=== PATIENT | male | born 1955 | race Two or more races ===

== ENCOUNTER 2019-06-01 13:48 | Outpatient (CLI) | payer MEDICARE ==
[2019-06-01] MEDS ORDERED: Iopamidol-370 76% 500 ML 1 ML ONE (14:14)
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
== END 2019-06-01 13:49 | disposition home or self-care (01) ==
LOC: BICCT 13:48
PROVIDERS: ATTEND Internal Medicine Gastroenterology
DX: C18.9 Malignant neoplasm of colon, unspecified (principal); K57.30 Diverticulosis of large intestine without perforation or abscess without bleeding; N40.0 Benign prostatic hyperplasia without lower urinary tract symptoms; K56.699 Other intestinal obstruction unspecified as to partial versus complete obstruction; M62.511 Muscle wasting and atrophy, not elsewhere classified, right shoulder; J98.4 Other disorders of lung; Z98.890 Other specified postprocedural states
CPT/HCPCS: 71260; 74177; Q9967

== ENCOUNTER 2019-06-22 06:59 | Outpatient (CLI) | payer MEDICARE ==
[2019-06-22 10:29] LABS: #Basophils 0.1 thou/uL (0.0-0.2); #Eosinphils 0.7 thou/uL (0.0-0.7); #Lymphocytes 2.8 thou/uL (1.20-3.40); #Monocytes 0.8 thou/uL (0.11-0.59); #Neutrophils 5.6 thou/uL (1.40-6.50); %Basophils 1.4 % (0.0-1.0); %Lymphocytes 28.2 % (21.0-51.0); %Monocytes 7.9 % (0.0-10.0); %Neutrophils 55.4 % (42.0-75.0); Hemoglobin 15.9 g/dL (14.0-18.0); Mean Corpuscular HGB CONC 33.7 g/dL (32.0-36.0); Mean Corpuscular Hemoglobin 31.9 pg (27.0-31.0); Mean Corpuscular Volume 94.4 fL (78.0-98.0); Mean Platelet Volume 8.9 fL (7.4-10.4); Platelet Count 200 thou/uL (130-400); RBC Distribution Width 12.6 % (11.5-14.5); Red Blood Cell (RBC) Count 4.98 mill/uL (4.70-6.10)
[2019-06-22 10:35] LABS: Hemoglobin A1c 6.3 % (4.0-6.0)
[2019-06-22 10:43] LABS: Anion Gap 14 mmol/L (10-20); BUN (Urea Nitrogen) 17 mg/dL (8.4-25.7); Calc. Creatinine Clearance 0 mL/min (70-130); Calcium 9.7 mg/dL (7.8-10.44); Carbon Dioxide 23 mmol/L (23-31); Chloride 104 mmol/L (98-107); Estimated GFR-MDRD Greater than 90; Glucose 110 mg/dL (80-115); Potassium 4.2 mmol/L (3.5-5.1); Sodium 137 mmol/L (136-145)
== END 2019-06-22 07:00 | disposition home or self-care (01) ==
LOC: LABBT 06:59
PROVIDERS: ATTEND Surgery
DX: Z01.812 Encounter for preprocedural laboratory examination (principal); C18.9 Malignant neoplasm of colon, unspecified
CPT/HCPCS: 80048; 83036; 85025

== ENCOUNTER 2019-06-22 10:00 | Inpatient (IN) | payer MEDICARE ==
[2019-06-29] MEDS ORDERED: Sodium Chloride 0.9% 0 ML ONE (06:05)
[2019-06-29] MEDS ORDERED: Lidocaine 1% (PF) 30 ML VIAL ONE (06:40)
[2019-06-29] MEDS ORDERED: Fentanyl 100 MCG/2 ML VIAL ONE ×3 (06:40→10:27)
[2019-06-29] MEDS ORDERED: Midazolam HCl 2 mg/2 ml Vial ONE (06:40)
[2019-06-29] MEDS ORDERED: HYDROmorphone 0.5 MG/0.5 ML SYRINGE ONE (07:13)
[2019-06-29] MEDS ORDERED: Albumin 5% 500 ML ONE (07:13)
[2019-06-29] MEDS ORDERED: Glycopyrrolate 0.2 MG/ML 5 ML SYRINGE ONE (09:47)
[2019-06-29] MEDS ORDERED: Ketorolac Tromethamine 30 MG/ML VIAL ONE (09:47)
[2019-06-29] MEDS ORDERED: Dexamethasone 20 MG/5 ML VIAL ONE (09:47)
[2019-06-29] MEDS ORDERED: PROPOFOL 200 MG/20 ML VIAL ONE (09:47)
[2019-06-29] MEDS ORDERED: Rocuronium Bromide 10 MG/ML (10ML VIAL) ONE (09:47)
[2019-06-29] MEDS ORDERED: Lidocaine 1% PF 5 ML VIAL ONE (09:47)
[2019-06-29] MEDS ORDERED: Ondansetron PF 4 MG/2 ML Vial ONE (09:47)
[2019-06-29] MEDS ORDERED: Bupivacaine HCl 0.5%/Epinephrine 1:200,000/PF 30 ml Vial ONE (09:56)
[2019-06-29] MEDS ORDERED: Promethazine HCl 25 MG/ML VIAL SLOW IVP PRN ×2 (10:10→10:28)
[2019-06-29] MEDS ORDERED: Promethazine HCl 25 MG/ML VIAL IM PRN ×3 (10:10→10:28)
[2019-06-29] MEDS ORDERED: HYDROmorphone 2 MG/ML VIAL SLOW IVP PRN (10:10)
[2019-06-29] MEDS ORDERED: Ondansetron HCl/PF 4 MG/2 ML Vial IVP PRN ×2 (10:10→10:28)
[2019-06-29] MEDS ORDERED: PACU-Morphine 4MG/ML VIAL SLOW IVP PRN (10:10)
[2019-06-29] MEDS ORDERED: Ondansetron PF 4 MG/2 ML Vial IVP PRN (10:19)
[2019-06-29] MEDS ORDERED: hydrALAZINE 20 MG/ML VIAL SLOW IVP PRN (10:19)
[2019-06-29] MEDS ORDERED: diphenhydrAMINE 50 MG/ML VIAL IVP PRN (10:28)
[2019-06-29] MEDS ORDERED: Naloxone HCl 0.4 mg/ml Vial IV PRN (10:28)
[2019-06-29] MEDS ORDERED: Zolpidem Tartrate 5 MG TAB PO PRN (10:28)
[2019-06-29] MEDS ORDERED: fentaNYL Citrate/PF 2,000 MCG in Sodium Chloride 0.9% 60 ML IV PRN (10:28)
[2019-06-29] MEDS ORDERED: diphenhydrAMINE 25 MG CAP PO PRN (10:28)
[2019-06-29] MEDS ORDERED: Ketorolac Tromethamine 30 MG/ML VIAL IVP PRN (10:28)
[2019-06-29] MEDS ORDERED: diphenhydrAMINE 50 MG/ML VIAL IM PRN (10:28)
[2019-06-29] MEDS ORDERED: Communication Order-Pharmacy FS SCH (10:30)
[2019-06-29] MEDS: Acetaminophen 500 MG TAB PO SCH ×3 (11:45→22:01)
[2019-06-29] MEDS: Sodium Chloride 0.9% 1,000 ML IV SCH (12:00)
[2019-06-29] MEDS ORDERED: Heparin 1,000 UNITS/ML VIAL ONE (12:56)
[2019-06-29] MEDS ORDERED: cefOXitin 2 GM in Sodium Chloride 0.9% 100 ML IVPB SCH (14:00)
--- NOTE | 2019-06-29 16:32 | OP ---
DATE OF PROCEDURE: 06/29/2019 PREOPERATIVE DIAGNOSIS: Splenic flexure of colon mass. POSTOPERATIVE DIAGNOSIS: Splenic flexure of colon mass. PROCEDURES PERFORMED: 1. Partial colectomy and anastomosis (transverse colon resection with splenic flexure). 2. Splenic flexure mobilization. ANESTHESIA: General. ESTIMATED BLOOD LOSS: 100 mL. COMPLICATIONS: None. FINDINGS: Significant scar tissue formation from previous surgery. TECHNIQUE: The patient was taken to the operating room and laid supine on the operating room table. After general anesthetic was obtained, a Briggs was placed. He was placed in lithotomy position. His abdomen was shaved, prepped, and draped in a sterile fashion. Left subcostal 5 mm Optiview trocar was placed in usual fashion. High-flow pneumoperitoneum was obtained. The patient had significant intra-abdominal adhesions. His omentum could not be retracted out of the pelvis. His omentum was stuck over the top of his previous right colon anastomosis. Decision was made to open. Midline incision was made. Bookwalter retractor was placed. All adhesions in the abdomen taken down. There was blue tattoo seen in the left upper quadrant. Splenic flexure was mobilized in the usual fashion, bringing the palpable mass up into the field. This was in the mid to distal transverse colon. The patient had a previous anastomosis that was in the area of the hepatic flexure. Hepatic flexure mobilization was performed then bringing the previous ileocolic anastomosis up into the field as well. Decision was made to resect the previous right colon anastomosis, the transverse colon, and the sigmoid colon. The mesenteric vessels were taken using the Impact LigaSure. There was one burn wound made to the small bowel and so this area of the small bowel was ellipsed out and closed transversely using 3-0 Vicryl in 2 layers. SWATHI 75 stapler was fired across the ileum just proximal to the previous ileocolic anastomosis. SWATHI-75 was fired across the mid descending colon. Specimen was opened on the back table to reveal the tumor, sent to Path for final diagnosis. The small intestine was able to be brought up in a [id number] fashion to the descending colon. Enterotomy and colotomy were made and a nlbt-nr-[id number] anastomosis was performed using the SWATHI-75 stapler. The common enterotomy was closed transversely using two layers of 2-0 Vicryl. The mesenteric defect was closed using Vicryl. Crotch stitch was placed using silk pop-off. Small bowel was then run all the way back to the ileocecal valve without evidence of any injury. The anastomosis did not appear ischemic. PDS was used to close the fascia from top and the bottom and tied in the middle. Subcutaneous tissues were irrigated and the skin was closed using running 3-0 Vicryl, 4-0 Monocryl, and Dermabond. The patient was sent to Recovery in stable condition. All instrument counts, needle counts, lap counts were correct. Job ID: [id number]
[2019-06-29] MEDS: cefOXitin Sodium/Dextrose,Iso 2 GM in Premix Bag 1 BAG IVPB SCH (17:01)
[2019-06-29] MEDS: Enoxaparin Sodium 40 MG/0.4 ML SYRINGE SC SCH (20:18)
[2019-06-29] MEDS: Famotidine 20 MG TAB PO SCH (20:18)
[2019-06-29] MEDS: NIFEdipine XL 60 MG TAB PO SCH (20:19)
[2019-06-29] MEDS: Famotidine/PF 20 mg/2ml Vial SLOW IVP SCH (20:19)
[2019-06-29] MEDS: Lisinopril 20 MG TAB PO SCH (20:19)
[2019-06-30] MEDS: Sodium Chloride 0.9% 1,000 ML IV SCH (00:52)
[2019-06-30] MEDS: cefOXitin Sodium/Dextrose,Iso 2 GM in Premix Bag 1 BAG IVPB SCH (00:52)
[2019-06-30] MEDS: Acetaminophen 500 MG TAB PO SCH ×4 (04:34→23:07)
[2019-06-30 05:55] LABS: #Lymphocytes 1.6 thou/uL (1.20-3.40); #Monocytes 1.3 thou/uL (0.11-0.59); #Neutrophils 13.1 thou/uL (1.40-6.50); %Basophils 0.2 % (0.0-1.0); %Eosinophils 0.1 % (0.0-10.0); %Neutrophils 81.6 % (42.0-75.0); Hemoglobin 13.6 g/dL (14.0-18.0); Mean Corpuscular HGB CONC 33.7 g/dL (32.0-36.0); Mean Corpuscular Hemoglobin 31.6 pg (27.0-31.0); Mean Corpuscular Volume 93.9 fL (78.0-98.0); Mean Platelet Volume 9.1 fL (7.4-10.4); Platelet Count 161 thou/uL (130-400); RBC Distribution Width 12.3 % (11.5-14.5)
[2019-06-30 06:13] LABS: Anion Gap 10 mmol/L (10-20); BUN (Urea Nitrogen) 9 mg/dL (8.4-25.7); Calc. Creatinine Clearance 137 mL/min (70-130); Calcium 8.5 mg/dL (7.8-10.44); Carbon Dioxide 26 mmol/L (23-31); Chloride 106 mmol/L (98-107); Estimated GFR-MDRD Greater than 90; Glucose 100 mg/dL (80-115); Sodium 138 mmol/L (136-145)
[2019-06-30] MEDS: Famotidine 20 MG TAB PO SCH ×2 (08:26→20:59)
[2019-06-30] MEDS: Lisinopril 20 MG TAB PO SCH ×2 (08:26→20:59)
[2019-06-30] MEDS: NIFEdipine XL 60 MG TAB PO SCH ×2 (08:26→20:59)
[2019-06-30] MEDS: Famotidine/PF 20 mg/2ml Vial SLOW IVP SCH ×2 (08:28→20:59)
[2019-06-30] MEDS ORDERED: Sodium Chloride 0.9% 1,000 ML IV SCH (10:11)
--- NOTE | 2019-06-30 10:18 | PRG ---
DATE OF SERVICE: 06/30/2019 SUBJECTIVE: Postop day 1, transverse colectomy. Mr. Singh is doing well. He tolerated the clear liquids without difficulty. He is complaining of pain, but it is tolerable. He has been ambulatory. OBJECTIVE: VITAL SIGNS: He is afebrile. Vital signs are stable. ABDOMEN: Soft, appropriately tender. The midline wound is healing well. There is no evidence of infection. LABORATORY DATA: White blood cell count is 16, hemoglobin 13, platelet count is 161. Sodium 138, potassium 4.0, creatinine 0.76. ASSESSMENT: Postoperative day 1 transverse colectomy for malignancy. PLAN: Advance to full liquids for dinner if he is still not complaining of bloating or nausea. Continue to encourage ambulation. Decrease IV fluid rate. Job ID: [id number]
[2019-06-30] MEDS: Enoxaparin Sodium 40 MG/0.4 ML SYRINGE SC SCH (20:58)
[2019-07-01] MEDS: Acetaminophen 500 MG TAB PO SCH ×2 (04:42→09:28)
[2019-07-01] MEDS: NIFEdipine XL 60 MG TAB PO SCH ×2 (09:28→20:57)
[2019-07-01] MEDS: Famotidine/PF 20 mg/2ml Vial SLOW IVP SCH ×2 (09:28→21:04)
[2019-07-01] MEDS: Lisinopril 20 MG TAB PO SCH ×2 (09:28→20:57)
[2019-07-01] MEDS: Famotidine 20 MG TAB PO SCH ×2 (09:28→20:57)
[2019-07-01] MEDS ORDERED: Fentanyl 100 MCG/2 ML VIAL SLOW IVP PRN (09:45)
[2019-07-01] MEDS ORDERED: HYDROcodone/Acetaminophen 7.5/325 mg Tablet PO PRN (09:45)
--- NOTE | 2019-07-01 12:01 | PRG ---
DATE OF SERVICE: 07/01/2019 SUBJECTIVE: Mr. Singh is doing well. Denies nausea. He is tolerating the full liquids without difficulty. OBJECTIVE: VITAL SIGNS: Afebrile. Vital signs are stable. ABDOMEN: Soft. He has active bowel sounds. Wounds healing well. No evidence of infection or hernia. ASSESSMENT: Postoperative day 2 transverse colectomy with ileo-descending colon anastomosis (he had previous right colectomy). PLAN: Full liquids today. Suspect he will be ready for discharge tomorrow. I have already sent his prescriptions of [place] and Zofran to [facility] in [place]. Job ID: [id number]
[2019-07-01] MEDS ORDERED: Acetaminophen 500 MG TAB PO PRN (12:50)
[2019-07-01] MEDS: Fentanyl 100 MCG/2 ML VIAL SLOW IVP PRN ×3 (14:28→19:17)
[2019-07-01] MEDS: HYDROcodone/Acetaminophen 7.5/325 mg Tablet PO PRN ×2 (14:54→20:58)
[2019-07-01] MEDS: Enoxaparin Sodium 40 MG/0.4 ML SYRINGE SC SCH (20:56)
[2019-07-02] MEDS: Ondansetron PF 4 MG/2 ML Vial IVP PRN ×3 (02:43→18:46)
[2019-07-02] MEDS: Fentanyl 100 MCG/2 ML VIAL SLOW IVP PRN ×2 (02:51→10:23)
--- NOTE | 2019-07-02 09:43 | PRG ---
DATE OF SERVICE: 07/02/2019 SUBJECTIVE: The patient reports he had a lot of vomiting last night. He feels better now. He is passing some loose stools, some gas. OBJECTIVE: VITAL SIGNS: On exam, his temperature is 98.2, pulse 107, but that is actually better than it had been yesterday, and blood pressure is 118/69. GENERAL: He is awake and alert. ABDOMEN: Little distended. The incision looks good. He has bowel sounds present. ASSESSMENT: Postoperative ileus. PLAN: Not ready to go home. He will keep him another day, ask him to ambulate frequently. Job ID: [id number]
[2019-07-02] MEDS: Famotidine 20 MG TAB PO SCH ×2 (09:51→21:48)
[2019-07-02] MEDS: Lisinopril 20 MG TAB PO SCH ×2 (09:51→21:49)
[2019-07-02] MEDS: Famotidine/PF 20 mg/2ml Vial SLOW IVP SCH ×2 (09:52→20:13)
[2019-07-02] MEDS: NIFEdipine XL 60 MG TAB PO SCH ×2 (09:52→21:49)
[2019-07-02] MEDS ORDERED: Sodium Chloride 0.9% 1,000 ML IV SCH (11:30)
[2019-07-02] MEDS: HYDROcodone/Acetaminophen 7.5/325 mg Tablet PO PRN (17:37)
[2019-07-02] MEDS: Promethazine HCl 25 MG/ML VIAL IM PRN (20:09)
[2019-07-02] MEDS: Enoxaparin Sodium 40 MG/0.4 ML SYRINGE SC SCH (20:10)
[2019-07-02] MEDS: D5 1/2 NS w/20 mEq KCL 1,000 ML IV SCH (23:14)
[2019-07-03] MEDS: Ondansetron PF 4 MG/2 ML Vial IVP PRN ×2 (02:35→08:19)
[2019-07-03] MEDS: Promethazine HCl 25 MG/ML VIAL IM PRN (05:52)
[2019-07-03] MEDS: Famotidine/PF 20 mg/2ml Vial SLOW IVP SCH ×2 (08:19→19:47)
[2019-07-03] MEDS: D5 1/2 NS w/20 mEq KCL 1,000 ML IV SCH ×3 (08:19→19:47)
[2019-07-03] MEDS: NIFEdipine XL 60 MG TAB PO SCH ×2 (08:20→19:48)
[2019-07-03] MEDS: Lisinopril 20 MG TAB PO SCH ×2 (08:20→19:48)
[2019-07-03] MEDS: Famotidine 20 MG TAB PO SCH ×2 (08:20→19:47)
--- NOTE | 2019-07-03 10:13 | PRG ---
DATE OF SERVICE: 07/03/2019 SUBJECTIVE: Mr. Singh had an extended colectomy done on Friday of the last week. From reviewing his progress note from Dr. Hernandez, yesterday his abdomen was slightly distended, but he was tolerating liquids. Yesterday, his diet was advanced and since that time, he has had multiple episodes of nausea and vomiting. He says that he is still passing some liquid stool, but no gas per rectum. He was made n.p.o. last night and intravenous fluids were re-instituted. OBJECTIVE: GENERAL: He looks pretty uncomfortable at present. VITAL SIGNS: His blood pressure is 107/60, his pulse is 110 with respirations of 16. ABDOMEN: Distended. Midline incision appears to be healing without problem. Bowel sounds are markedly diminished to absent. He does have some generalized tenderness to palpation of the abdomen. LABORATORY DATA: No lab studies were ordered for today. IMPRESSION: Persistent nausea and vomiting. Hopefully, this is an ileus, always need to be concerned about anastomotic issues. PLAN: Repeat CBC and chemistry profile will be ordered. Chest x-ray and right abdominal films will be ordered. Because of this persistent nausea and vomiting, nasogastric tube will be placed. Continue to monitor his status closely. Job ID: [id number]
--- NOTE | 2019-07-03 10:15 | RAD ---
Chest one view Abdomen 2 views HISTORY: Abdominal pain and distention. Recent surgery. FINDINGS: Cardiac silhouette and pulmonary vasculature are unremarkable. Mediastinum is midline allow ing for rightward convex curvature of the thoracic spine. Nasogastric tube descends to the abdomen. No lobar consolidation or evidence of pneumothorax. Gas and fluid distended loops of small bowel are present throughout the abdomen with scattered air-fl uid levels on the upright view. No evidence of free subdiaphragmatic gas. Gas within the left lower quadrant has the appearance of sigmoid colon. Hemostasis clips overlie midline abdomen. Internal fixa tion of the thoracolumbar spine is apparent. IMPRESSION : Abnormal bowel gas pattern. Gas within the distal colon increases likelihood of ileus over obstructio n. Nasogastric tube in good position. Atherosclerosis.
[2019-07-03 11:21] LABS: Hemoglobin 14.2 g/dL (14.0-18.0); Mean Corpuscular HGB CONC 34.3 g/dL (32.0-36.0); Mean Corpuscular Volume 93.3 fL (78.0-98.0); Mean Platelet Volume 9.5 fL (7.4-10.4); Platelet Count 214 thou/uL (130-400); RBC Distribution Width 12.4 % (11.5-14.5); Red Blood Cell (RBC) Count 4.43 mill/uL (4.70-6.10); White Blood Cell (WBC) Count 8.1 thou/uL (4.8-10.8)
[2019-07-03 11:46] LABS: Anion Gap 18 mmol/L (10-20); BUN (Urea Nitrogen) 23 mg/dL (8.4-25.7); Calc. Creatinine Clearance 45 mL/min (70-130); Calcium 9.3 mg/dL (7.8-10.44); Carbon Dioxide 23 mmol/L (23-31); Chloride 94 mmol/L (98-107); Estimated GFR-MDRD 29; Glucose 147 mg/dL (80-115); Potassium 4.4 mmol/L (3.5-5.1); Sodium 131 mmol/L (136-145)
[2019-07-03 11:47] LABS: Band 6 % (5-11); Eosinophils 2 % (0-10); Large Platelets SLIGHT; Lymphocytes 20 % (21-51); MDiff Complete? YES; Monocytes 16 % (0-10); Neutrophil 56 % (42-75); Platelet Morphology Comment Appears Adequate
[2019-07-03] MEDS: Enoxaparin Sodium 40 MG/0.4 ML SYRINGE SC SCH (19:47)
[2019-07-04] MEDS: Fentanyl 100 MCG/2 ML VIAL SLOW IVP PRN ×2 (02:30→22:35)
[2019-07-04] MEDS: Ondansetron PF 4 MG/2 ML Vial IVP PRN ×2 (05:22→11:15)
--- NOTE | 2019-07-04 08:47 | PRG ---
DATE OF SERVICE: 07/04/2019 SUBJECTIVE: Mr. Singh says that he feels much better today since the nasogastric tube was placed. He is still having a considerable amount of nasogastric tube output. He says that he passed a small amount of stool per rectum. He is urinating, although not in great volumes. His x-ray from yesterday was most consistent with an ileus. OBJECTIVE: His examination today reveals his abdomen to be much less distended, still slightly tender to palpation. Few rare bowel sounds are heard. The midline incision appears to be healing without problem. IMPRESSION: He appears to be improved as compared to yesterday. PLAN: The only major change for today is to increase his IV fluid rate as the present rate is not enough to compensate for the amount of nasogastric output. Nasogastric tube will remain in place. He should continue to be ambulatory. Job ID: [id number]
[2019-07-04] MEDS: Famotidine 20 MG TAB PO SCH ×2 (08:54→21:29)
[2019-07-04] MEDS: NIFEdipine XL 60 MG TAB PO SCH ×2 (08:55→21:29)
[2019-07-04] MEDS: Lisinopril 20 MG TAB PO SCH ×2 (08:55→21:29)
[2019-07-04] MEDS: Famotidine/PF 20 mg/2ml Vial SLOW IVP SCH ×2 (09:03→21:31)
[2019-07-04] MEDS: D5 1/2 NS w/20 mEq KCL 1,000 ML IV SCH ×2 (11:45→18:25)
[2019-07-04] MEDS: Enoxaparin Sodium 40 MG/0.4 ML SYRINGE SC SCH (21:31)
[2019-07-05] MEDS: D5 1/2 NS w/20 mEq KCL 1,000 ML IV SCH ×4 (01:02→15:03)
[2019-07-05] MEDS: Famotidine 20 MG TAB PO SCH ×2 (08:15→20:24)
[2019-07-05] MEDS: NIFEdipine XL 60 MG TAB PO SCH ×2 (08:15→20:25)
[2019-07-05] MEDS: Lisinopril 20 MG TAB PO SCH ×2 (08:15→20:25)
[2019-07-05] MEDS: Famotidine/PF 20 mg/2ml Vial SLOW IVP SCH ×2 (08:16→20:24)
--- NOTE | 2019-07-05 09:03 | PRG ---
DATE OF SERVICE: 07/05/2019 SUBJECTIVE: The patient is feeling better after NG tube decompression. He says he feels hungry. He is having multiple bowel movements. Unfortunately, he is putting a tremendous amount of bilious fluid out his NG tube. OBJECTIVE: VITAL SIGNS: His temperature is 97.8, pulse 93, blood pressure 110/68. ABDOMEN: Soft, less distended. The incision is healing well. ASSESSMENT: Postoperative ileus with malnutrition. PLAN: We will place a PICC line and start TPN; as NG output decreases, we can discontinue it. Job ID: [id number]
--- NOTE | 2019-07-05 10:57 | SPC ---
Ultrasound and Fluoroscopic guided left upper extremity PICC placement HISTORY: Postoperative ileus. Malnutrition. Patient needs TPN. FINDINGS: Informed consent obtained prior to the procedure. An appropriate access site was determined with ultrasound guidance. The area was then meticulously pr epped and draped in usual sterile fashion. Skin overlying the left basilic vein anesthetized with 1% buffered lidocaine. Utilizing direct sonogr aphic guidance, vascular access is obtained via the left basilic vein, and an 0.018in guidewire was advanced to the distal SVC. Intravascular length is calculated at 40 cm, and the PICC is cut accordin gly. Needle is removed and replaced with a peel-away sheath. The PICC was advanced over the wire. Wire and peel-away sheath were removed. The tip of the catheter overlies the distal SVC. The catheter was accessed and aspirated/flushed easily. Exposure data: 0 minutes of fluoroscopic time 31 mGy centimeter squared FINDINGS: Technically successful placement of a 40 centimeter dual-lumen 5 [place] left upper extremity PICC reena gan IMPRESSION: Successful ultrasound guided placement of a left upper extremity PICC.
[2019-07-05] MEDS: Ondansetron PF 4 MG/2 ML Vial IVP PRN (11:00)
[2019-07-05 11:25] LABS: Hemoglobin 15.3 g/dL (14.0-18.0); Mean Corpuscular HGB CONC 34.8 g/dL (32.0-36.0); Mean Corpuscular Hemoglobin 32.3 pg (27.0-31.0); Mean Corpuscular Volume 92.7 fL (78.0-98.0); Platelet Count 267 thou/uL (130-400); RBC Distribution Width 12.4 % (11.5-14.5); Red Blood Cell (RBC) Count 4.74 mill/uL (4.70-6.10); White Blood Cell (WBC) Count 9.2 thou/uL (4.8-10.8)
[2019-07-05 11:44] LABS: Anion Gap 23 mmol/L (10-20); BUN (Urea Nitrogen) 42 mg/dL (8.4-25.7); Calc. Creatinine Clearance 15 mL/min (70-130); Carbon Dioxide 19 mmol/L (23-31); Chloride 93 mmol/L (98-107); Estimated GFR-MDRD 8; Glucose 126 mg/dL (80-115); Potassium 4.5 mmol/L (3.5-5.1); Sodium 130 mmol/L (136-145)
[2019-07-05 12:13] LABS: Band 33 % (5-11); Eosinophils 6 % (0-10); Lymphocytes 19 % (21-51); MDiff Complete? YES; Monocytes 14 % (0-10); Neutrophil 27 % (42-75); RBC Morphology Normal; Reactive Lymphocytes 1 % (0-10)
[2019-07-05 13:25] VITALS: BMI 27.6
[2019-07-05] MEDS: Multivitamins, Adult 10 ML, TRACE ELEMENT CONCENTRATE 1 ML, Fat Emulsion 250 ML in D15W... IV SCH (14:22)
[2019-07-05] MEDS ORDERED: HumaLOG 300 UNITS/3 ML VIAL SC PRN (15:01)
[2019-07-05] MEDS ORDERED: Dextrose 5% in Water 1,000 ML IV PRN (15:01)
[2019-07-05] MEDS ORDERED: Dextrose 50% Abboject 50 ML SYRINGE IVP PRN (15:01)
[2019-07-05] MEDS ORDERED: Enoxaparin Sodium 30 MG/0.3 ML SYRINGE SC SCH (21:00)
[2019-07-06] MEDS: Ondansetron PF 4 MG/2 ML Vial IVP PRN ×2 (02:14→09:48)
[2019-07-06] MEDS: Fentanyl 100 MCG/2 ML VIAL SLOW IVP PRN (02:21)
[2019-07-06] MEDS: Famotidine 20 MG TAB PO SCH ×2 (07:40→20:24)
[2019-07-06] MEDS: Lisinopril 20 MG TAB PO SCH (07:40)
[2019-07-06] MEDS: NIFEdipine XL 60 MG TAB PO SCH ×2 (07:41→20:23)
[2019-07-06] MEDS: Famotidine/PF 20 mg/2ml Vial SLOW IVP SCH ×2 (08:17→20:27)
[2019-07-06] MEDS: D5 1/2 NS w/20 mEq KCL 1,000 ML IV SCH (12:10)
--- NOTE | 2019-07-06 12:58 | PRG ---
DATE OF SERVICE: 07/06/2019 SUBJECTIVE: The patient is feeling much better. He denies any pain. No nausea or vomiting. His bowels are functioning well. He continues to have a pretty high NG output, however. OBJECTIVE: VITAL SIGNS: His temperature is 97.7, pulse 77, and blood pressure 119/74. GENERAL: He is awake and alert. ABDOMEN: Soft, nondistended, and nontender. The incision is healing well. ASSESSMENT: NG may be in his duodenum. PLAN: We will clamp NG. Check gastric residual, if low discontinue NG. Job ID: [id number]
[2019-07-06] MEDS: Multivitamins, Adult 10 ML, TRACE ELEMENT CONCENTRATE 1 ML, Fat Emulsion 250 ML in D15W... IV SCH (14:35)
[2019-07-06 16:29] LABS: Anion Gap 22 mmol/L (10-20); BUN (Urea Nitrogen) 81 mg/dL (8.4-25.7); Calc. Creatinine Clearance 12 mL/min (70-130); Calcium 10.1 mg/dL (7.8-10.44); Carbon Dioxide 18 mmol/L (23-31); Chloride 96 mmol/L (98-107); Estimated GFR-MDRD 7; Glucose 94 mg/dL (80-115); Potassium 4.6 mmol/L (3.5-5.1); Sodium 131 mmol/L (136-145)
[2019-07-06] MEDS ORDERED: Sodium Chloride 0.9% 1,000 ML IV SCH (18:15)
--- NOTE | 2019-07-06 18:25 | PRG ---
DATE OF SERVICE: 07/06/2019 The patient is feeling fine. His NG is out. He is tolerating clear liquids. He is voiding, but his urine output is low. On examination, his abdomen is soft, nondistended, nontender. He had a laboratory drawn for his TPN, which I did not get a report on and did not see this morning that showed his creatinine was 6, it was repeated and is 8, so he is in renal insufficiency. The plan is to consult Renal Medicine. We will go ahead and give a bolus of normal saline. Stop his TPN. His potassium level is 4.6. We will continue IV fluids, try and rehydrate him, and follow his electrolytes carefully. Job ID: [id number]
[2019-07-06] MEDS: Sodium Chloride 0.9% 1,000 ML IV SCH (19:10)
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
[2019-07-06] MEDS: Heparin 5,000 UNITS/ML VIAL SC SCH (20:29)
[2019-07-07] MEDS: Sodium Chloride 0.9% 1,000 ML IV SCH ×3 (01:36→14:01)
[2019-07-07 05:47] LABS: Anion Gap 17 mmol/L (10-20); BUN (Urea Nitrogen) 77 mg/dL (8.4-25.7); Calc. Creatinine Clearance 16 mL/min (70-130); Carbon Dioxide 16 mmol/L (23-31); Chloride 98 mmol/L (98-107); Estimated GFR-MDRD 9; Glucose 97 mg/dL (80-115); Potassium 4.3 mmol/L (3.5-5.1); Sodium 127 mmol/L (136-145)
[2019-07-07] MEDS: NIFEdipine XL 60 MG TAB PO SCH (08:26)
[2019-07-07] MEDS: Famotidine 20 MG TAB PO SCH (08:26)
[2019-07-07] MEDS: Heparin 5,000 UNITS/ML VIAL SC SCH ×2 (08:26→21:57)
[2019-07-07] MEDS: Famotidine/PF 20 mg/2ml Vial SLOW IVP SCH (08:28)
--- NOTE | 2019-07-07 08:36 | PDOC.GSPN ---
Surgery Progress Note: Subj - Subjective Narrative: No nausea, having loose stools. Multiple voids. Surgery Progress Note: Obj - Vital signs Vital signs: Vital Signs - Most Recent Temp Pulse Resp BP Pulse Ox 98 F 74 16 139/82 99 07/07/19 07:42 07/07/19 08:26 07/07/19 07:42 07/07/19 08:26 07/07/19 07:42 - Physical Exam General: no distress Cardiovascular: regular rate and rhythm Respiratory: clear to auscultation Abdomen: soft, non tender, nondistended Wound: healing well Surgery Progress Note: Results - Labs Result Diagrams: 07/05/19 11:11 07/07/19 04:58 Lab results: Laboratory Results - last 24 hr 07/06/19 07/07/19 07/07/19 23:26 04:58 05:34 Sodium 127 L Potassium 4.3 Chloride 98 Carbon Dioxide 16 L Anion Gap 17 BUN 77 H Creatinine 6.15 H Estimated GFR (MDRD) 9 Glucose 97 POC Glucose 83 95 Calcium 9.0 Surgery Progress Note: A/P - Problem (1) Colon cancer metastasized to intra-abdominal lymph node Current Visit: Yes Code(s): C18.9 - MALIGNANT NEOPLASM OF COLON, UNSPECIFIED; C77.2 - SECONDARY AND UNSP MALIGNANT NEOPLASM OF INTRA-ABD NODES Status: Acute - Plan Plan: T2, N1, Mx -advance to GI soft -appreciate Dr. Anglin consultation -discussed path results. Oncology visit as outpatient
--- NOTE | 2019-07-07 09:58 | ULT ---
Bilateral renal ultrasound CLINICAL INDICATION: Acute renal insufficiency. COMPARISON: CT abdomen on 06/01/2019 FINDINGS: Right kidney: There is no evidence of a renal mass, renal calculus, or hydronephrosis seen. There is an echogenic area seen within the cortex of the right kidney; however, this does not demonstrate posterior shadowing to suggest a calculus, and this is likely related to prominent vessel. No calcifi cation was seen on recent CT exam. The right kidney measures 10.4 cm x 5.8 cm. Left kidney: There is no evidence of a renal mass, renal calculus, or hydronephrosis. There is an ech ogenic area seen within the cortex of the left kidney; however, this does not demonstrate posterior shadowing to suggest a calculus, and this is likely related to prominent vessel. No calcification was seen on recent CT exam. The left kidney measures 10.4 cm x 5.6 cm. Urinary bladder: Mostly decompressed but otherwise grossly within normal limits. The urinary bladder volume is 54.6 mL IMPRESSION: No evidence of hydronephrosis.
--- NOTE | 2019-07-07 10:31 | PRG ---
DATE OF SERVICE: 07/07/2019 SUBJECTIVE: A 63-year-old gentleman is being seen for acute kidney injury. The patient denies any nausea, vomiting, or chest pain. OBJECTIVE: GENERAL: The patient is awake and alert. VITAL SIGNS: Afebrile, pulse 74, breathing 16, blood pressure 139/82. HEENT: Head normocephalic and atraumatic. Eyes intact, no ulcers. Nose intact, no ulcers. Ears intact, no ulcers. NECK: Supple. No JVD. CHEST: Symmetrical and clear. CARDIOVASCULAR: Shows S1 and S2, no rub, no murmur. GASTROINTESTINAL: Abdomen is soft, bowel sounds positive. EXTREMITIES: Show no edema or ulcers. SKIN: Shows no rash or petechiae. MUSCULOSKELETAL: Shows no joint swelling or stiffness. GENITOURINARY: Shows no Briggs or CVA tenderness. NEUROLOGIC: Motor intact. Cranial nerves intact. LABORATORY DATA: Reviewed. ASSESSMENT: 1. Acute kidney injury, improved. 2. Hypertension, stable. 3. Anemia, stable. 4. Medication based on GFR appropriate. Job ID: [id number]
[2019-07-07 17:12] LABS: Creatinine, Urine 166.03 mg/dL (63-166)
[2019-07-08] MEDS: Sodium Chloride 0.9% 1,000 ML IV SCH ×2 (00:19→03:09)
[2019-07-08] MEDS: Ondansetron PF 4 MG/2 ML Vial IVP PRN (00:36)
[2019-07-08] MEDS ORDERED: Sodium Chloride 0.9% 1,000 ML IV SCH (08:22)
[2019-07-08] MEDS ORDERED: traMADol HCl 50 MG TAB PO PRN ×2 (08:22)
[2019-07-08] MEDS ORDERED: Famotidine/PF 20 mg/2ml Vial SLOW IVP SCH (09:00)
[2019-07-08] MEDS ORDERED: Famotidine 20 MG TAB PO SCH (09:00)
[2019-07-08] MEDS: Heparin 5,000 UNITS/ML VIAL SC SCH (09:11)
--- NOTE | 2019-07-08 09:16 | PRG ---
DATE OF SERVICE: 07/08/2019 SUBJECTIVE: Mr. Singh did vomit overnight after drinking 2 Ensures. He feels fine this morning. He is passing gas. He is still having liquid stools. He has no abdominal pain. OBJECTIVE: VITAL SIGNS: He is afebrile and his vital signs are stable. GENERAL: Multiple voids. LABORATORY DATA: Lab still pending this morning. ASSESSMENT: 1. Postop ileus, resolving after transverse colectomy. 2. Acute tubular necrosis, improved yesterday. Still urinating regularly. PLAN: Recheck creatinine level today. Potentially discharge later today as long as his nausea does not return. We will switch him from hydrocodone to tramadol. Job ID: [id number]
[2019-07-08 10:05] LABS: Anion Gap 12 mmol/L (10-20); BUN (Urea Nitrogen) 59 mg/dL (8.4-25.7); Calc. Creatinine Clearance 39 mL/min (70-130); Calcium 8.8 mg/dL (7.8-10.44); Carbon Dioxide 20 mmol/L (23-31); Chloride 101 mmol/L (98-107); Estimated GFR-MDRD 26; Glucose 138 mg/dL (80-115); Potassium 4.1 mmol/L (3.5-5.1); Sodium 129 mmol/L (136-145)
[2019-07-08 11:48] VITALS: BP 139/72; TEMP 98.6
--- NOTE | 2019-07-08 11:53 | PRG ---
DATE OF SERVICE: 07/08/2019 SUBJECTIVE: A 63-year-old gentleman being seen for acute kidney injury. Patient denied nausea, vomiting, or chest pain. OBJECTIVE: GENERAL: On examination, patient is awake and alert. VITAL SIGNS: Pulse 74, breathing 16, blood pressure 134/67. HEENT: Head normocephalic and atraumatic. Eyes intact, no ulcers. Nose intact, no ulcers. Ears intact, no ulcers. Neck: Supple. No JVD. Chest: Symmetrical and clear. Cardiovascular: Shows S1 and S2, no rub, no murmur. Gastrointestinal: Abdomen is soft, bowel sounds positive. Extremities: Show no edema or ulcers. Skin: Shows no rash or petechiae. Musculoskeletal: Shows no joint swelling or stiffness. Genitourinary: Shows no Briggs or CVA tenderness. Neurologic: Motor intact. Cranial nerves intact. LABORATORY DATA: Hemoglobin 15.3, creatinine 2.5. ASSESSMENT AND PLAN: Acute kidney injury, improved; hypertension, stable; anemia, stable. No indication for dialysis. Please avoid DEVIKA inhibitor at this time. Job ID: [id number]
--- NOTE | 2019-07-12 09:03 | PQF ---
MOY HERRERA BRYAN DAVID MD [id number] [facility] B- [id number] CLINICAL DOCUMENTATION CLARIFICATION FORM: POST DISCHARGE Addendum to original discharge summary date: ____ Late entry note date: __ DATE: 07/12/2019 ATTN: Yo Whiting Please exercise your independent, professional judgment in responding to the clarification form. Clinical indicators are provided on the bottom of this form for your review Please check appropriate box(s) to clarify if the following diagnosis has been ruled in or ruled out: Acute tubular Necrosis [ ] Ruled in diagnosis [ ] Continue to treat [ ] Resolved [ ] Ruled out diagnosis [ ] Cannot rule out diagnosis [ ] Other diagnosis [ ] Unable to determine For continuity of documentation, please document condition throughout progress notes and discharge summary. Thank You. CLINICAL INDICATORS - SIGNS / SYMPTOMS / LABS Laboratory Creatinine 2.31; 6.77; 8.17; 6.15, BUN 23; 42; 81; 71 Nephrology consult p1 07/05 Dr Anglin normal creatinine at baseline, His creatinine increased from 0.7 to 2.3 on July 02 and it is 8.17 today Necrology consult p1 07/05 Dr Anglin having a diarrhea, about 7-8 bowel movements a day Nephrology consult p2 07/05 Dr Anglin Acute kidney injury with chronic disease, most likely due to decreased effective arterial blood volume RISK FACTORS Nephrology consult p1 07/05 HTN Nephrology consult p2 07/05 Anemia Nephrology consult p2 07/05 CKD Nephrology consult p2 07/05 Metabolic Acidosis TREATMENTS MAR 07/01 IVF NS 1L Nephrology consult 07/05 Nani Stanton Nephrology consult p2 07/05 -Monitor I & O (This form is maintained as a part of the permanent medical record) 2014 [employer]. All Rights Reserved [email or web address]
== END 2019-07-08 13:29 | disposition home or self-care (01) | DRG 330 ==
LOC: SURG A 06-29 05:45 → EDSTATUS 06-29 10:00 → SURG B 06-29 11:12
PROVIDERS: ADMIT Surgery; ATTEND Surgery
PROC: 0DTL0ZZ Resection of Transverse Colon, Open Approach (ICD-10-PCS; principal; 2019-06-29)
PROC: 02HV33Z Insertion of Infusion Device into Superior Vena Cava, Percutaneous Approach (ICD-10-PCS; 2019-07-05)
PROC: B548ZZA Ultrasonography of Superior Vena Cava, Guidance (ICD-10-PCS; 2019-07-05)
DX: C18.4 Malignant neoplasm of transverse colon (principal); K56.7 Ileus, unspecified; N17.9 Acute kidney failure, unspecified; E87.2 Acidosis; C77.2 Secondary and unspecified malignant neoplasm of intra-abdominal lymph nodes; E46 Unspecified protein-calorie malnutrition; I25.10 Atherosclerotic heart disease of native coronary artery without angina pectoris; F17.200 Nicotine dependence, unspecified, uncomplicated; D63.1 Anemia in chronic kidney disease; N18.9 Chronic kidney disease, unspecified; I12.9 Hypertensive chronic kidney disease with stage 1 through stage 4 chronic kidney disease, or unspecified chronic kidney disease; Z79.899 Other long term (current) drug therapy; Z90.49 Acquired absence of other specified parts of digestive tract; Z68.27 Body mass index [BMI] 27.0-27.9, adult; Z79.82 Long term (current) use of aspirin
CPT/HCPCS: 36415; 36416; 36569; 74022; 76770; 80048; 82570; 84156; 85025; 87324; 87449; 88309; 94640; C1751; J0670; J0694; J1100; J1170; J1644; J1650; J1885; J2001; J2250; J2405; J2550; J2704; J3010; J3480; J3490; J7050; J7620; P9045; S0028

== ENCOUNTER 2019-07-13 14:40 | Observation (INO) | payer MEDICARE ==
[2019-07-13 15:42] LABS: Hemoglobin 17.3 g/dL (14.0-18.0); Mean Corpuscular HGB CONC 33.4 g/dL (32.0-36.0); Mean Corpuscular Volume 92.8 fL (78.0-98.0); Mean Platelet Volume 8.4 fL (7.4-10.4); Platelet Count 513 thou/uL (130-400); RBC Distribution Width 12.6 % (11.5-14.5); Red Blood Cell (RBC) Count 5.57 mill/uL (4.70-6.10); White Blood Cell (WBC) Count 21.1 thou/uL (4.8-10.8)
[2019-07-13 16:00] LABS: Band 15 % (5-11); Eosinophils 3 % (0-10); Lymphocytes 2 % (21-51); MDiff Complete? YES; Monocytes 9 % (0-10); Neutrophil 68 % (42-75); Platelet Morphology Comment Appears Increased; Polychromasia SLIGHT = 2-3 cells (100X) (0-2/hpf); Reactive Lymphocytes 3 % (0-10)
[2019-07-13 16:04] LABS: ALT (SGPT) 29 U/L (8-55); AST (SGOT) 18 U/L (5-34); Albumin 4.5 g/dL (3.4-4.8); Alkaline Phosphatase 94 U/L (40-110); Anion Gap 22 mmol/L (10-20); BUN (Urea Nitrogen) 94 mg/dL (8.4-25.7); Bilirubin, Total 1.1 mg/dL (0.2-1.2); CK (CPK) 333 U/L (30-200); Calc. Creatinine Clearance 0 mL/min (70-130); Calcium 10.2 mg/dL (7.8-10.44); Carbon Dioxide 13 mmol/L (23-31); Chloride 95 mmol/L (98-107); Estimated GFR-MDRD 25; Globulin 4.5 g/dL (2.4-3.5); Glucose 113 mg/dL (80-115); Magnesium 2.3 mg/dL (1.6-2.6); Sodium 125 mmol/L (136-145)
--- NOTE | 2019-07-13 16:29 | RAD ---
ACUTE ABDOMINAL SERIES: 07/13/19 PROVIDED CLINICAL HISTORY: Nausea and vomiting. FINDINGS: Comparison 07/03/19. The cardiac and mediastinal silhouette is within normal limits. Lungs appear clear. No pleural fluid or pneumothorax apparent. Supine and upright abdominal radiographs demonstrate a nonspecific bowel gas pattern. No evidence for pneumoperitoneum. No radiographically apparent urinary tract calculi. Spinal instrumentation changes are redemonstrated. IMPRESSION: 1. No evidence for an acute cardiopulmonary process. 2. Nonspecific bowel gas pattern. POS: EDGARDO
[2019-07-13] MEDS ORDERED: hydrALAZINE 20 MG/ML VIAL SLOW IVP PRN (17:40)
[2019-07-13] MEDS ORDERED: Acetaminophen 325 MG TAB PO PRN (17:40)
[2019-07-13] MEDS ORDERED: traMADol HCl 50 MG TAB PO PRN (17:40)
[2019-07-13] MEDS ORDERED: HYDROcodone/Acetaminophen 10/325 mg Tablet PO PRN (17:40)
[2019-07-13] MEDS ORDERED: Morphine 2 MG/ML SYRINGE SLOW IVP PRN (17:40)
[2019-07-13] MEDS ORDERED: Promethazine HCl 25 MG/ML VIAL IM PRN (17:40)
[2019-07-13] MEDS ORDERED: Ondansetron PF 4 MG/2 ML Vial IVP PRN (17:40)
[2019-07-13] MEDS ORDERED: Dextrose 50% Abboject 50 ML SYRINGE SLOW IVP PRN (17:40)
[2019-07-13] MEDS ORDERED: Dextrose 5% in Water 1,000 ML IV PRN (17:40)
[2019-07-13] MEDS ORDERED: Albuterol Sulfate 2.5 mg/3 ml Neb NEB PRN (18:00)
[2019-07-13] MEDS: Sodium Chloride 0.9% 1,000 ML IV SCH (18:10)
[2019-07-13 19:47] VITALS: BMI 25.4
[2019-07-13] MEDS: Famotidine 20 MG TAB PO SCH (19:53)
[2019-07-13] MEDS: NIFEdipine XL 60 MG TAB PO SCH (19:53)
[2019-07-13] MEDS: Enoxaparin Sodium 40 MG/0.4 ML SYRINGE SC SCH (20:03)
[2019-07-13] MEDS: Famotidine/PF 20 mg/2ml Vial SLOW IVP SCH (20:03)
--- NOTE | 2019-07-13 23:38 | HP ---
CHIEF COMPLAINT: Nausea, diarrhea, fatigue. HISTORY OF PRESENT ILLNESS: This is a 63-year-old male, who is status post transverse colectomy for T2 N1 MX distal transverse colon cancer, recently underwent open colectomy by me. The postop course was complicated by ATN of kidneys. This was resolving at the time of discharge and he was doing well. He saw me in the office today complaining of very significant fatigue, not feeling well, sent over to the emergency room for fluid resuscitation and found to have persistent elevated creatinine, although much improved from his peak of 8, but also elevated white blood cell count and low sodium. He is being admitted for fluid resuscitation. PAST MEDICAL HISTORY: Includes hypertension, chronic pain, history of right colon polyp, colon cancer, coronary artery disease, seen by Dr. Montes. ALLERGIES: PENICILLIN. PAST SURGICAL HISTORY: Above. MEDICATIONS: See list. REVIEW OF SYSTEMS: Otherwise negative. PHYSICAL EXAMINATION: HEENT: Sclerae are anicteric. Oropharynx clear. NECK: No lymphadenopathy. CHEST: Clear. HEART: Regular rate. ABDOMEN: Soft, nontender, nondistended with active bowel sounds. His midline wound is healing well. LABORATORY DATA: White blood cell count is 21, hemoglobin is 17, platelet count is 513. Sodium 125, potassium 5, chloride 95, carbon dioxide 13, creatinine 2.62, BUN 94, creatine kinase is 333, albumin normal. Acute abdominal series shows no ileus or evidence of obstructive pattern. ASSESSMENT: 1. Nausea, vomiting, dehydration, status post colectomy complicated by acute tubular necrosis. 2. Coronary artery disease. 3. Hypertension. PLAN: Admit to obs for ongoing fluid resuscitation. I suspect his leukocytosis is secondary to dehydration as well. If he has fevers, tachycardia or persistently elevated white blood cell count tomorrow, we will start antibiotics and perform CT scan although his abdomen is soft and benign. We will have the medical hospitalist see him as well. Job ID: [id number]
[2019-07-14] MEDS: Sodium Chloride 0.9% 1,000 ML IV SCH (01:03)
[2019-07-14] MEDS: Morphine 4 MG/ML VIAL SLOW IVP PRN ×2 (05:16→21:15)
[2019-07-14 05:52] LABS: #Basophils 0.1 thou/uL (0.0-0.2); #Eosinphils 0.2 thou/uL (0.0-0.7); #Lymphocytes 2.4 thou/uL (1.20-3.40); #Monocytes 1.4 thou/uL (0.11-0.59); #Neutrophils 9.9 thou/uL (1.40-6.50); %Basophils 0.5 % (0.0-1.0); %Eosinophils 1.7 % (0.0-10.0); %Lymphocytes 17.1 % (21.0-51.0); %Monocytes 10.3 % (0.0-10.0); %Neutrophils 70.5 % (42.0-75.0); Hemoglobin 13.5 g/dL (14.0-18.0); Mean Corpuscular HGB CONC 34.1 g/dL (32.0-36.0); Mean Corpuscular Hemoglobin 31.3 pg (27.0-31.0); Mean Corpuscular Volume 91.9 fL (78.0-98.0); Mean Platelet Volume 8.1 fL (7.4-10.4); Platelet Count 450 thou/uL (130-400); RBC Distribution Width 12.2 % (11.5-14.5); Red Blood Cell (RBC) Count 4.32 mill/uL (4.70-6.10); White Blood Cell (WBC) Count 14.1 thou/uL (4.8-10.8)
[2019-07-14 06:13] LABS: Anion Gap 13 mmol/L (10-20); BUN (Urea Nitrogen) 69 mg/dL (8.4-25.7); Calc. Creatinine Clearance 61 mL/min (70-130); Calcium 8.7 mg/dL (7.8-10.44); Carbon Dioxide 16 mmol/L (23-31); Chloride 106 mmol/L (98-107); Estimated GFR-MDRD 48; Glucose 86 mg/dL (80-115); Potassium 4.1 mmol/L (3.5-5.1); Sodium 131 mmol/L (136-145)
[2019-07-14] MEDS ORDERED: Sodium Chloride 0.9% 1,000 ML IV SCH (07:29)
--- NOTE | 2019-07-14 07:31 | PDOC.GSPN ---
Surgery Progress Note: Subj - Subjective Narrative: Feels better, nausea improved. Denies dyspnea Surgery Progress Note: Obj - Vital signs Vital signs: Vital Signs - Most Recent Temp Pulse Resp BP Pulse Ox 97.6 F 70 14 118/76 99 07/14/19 07:28 07/14/19 07:28 07/14/19 07:28 07/14/19 07:28 07/14/19 07:28 - Physical Exam General: no distress Cardiovascular: regular rate and rhythm Respiratory: clear to auscultation Abdomen: soft, non tender, nondistended Surgery Progress Note: Results - Labs Result Diagrams: 07/14/19 05:35 07/14/19 05:35 Lab results: Laboratory Results - last 24 hr 07/14/19 07/14/19 05:35 05:35 WBC 14.1 H RBC 4.32 L Hgb 13.5 L Hct 39.7 L MCV 91.9 MCH 31.3 H MCHC 34.1 RDW 12.2 Plt Count 450 H MPV 8.1 Neutrophils % 70.5 Lymphocytes % 17.1 L Monocytes % 10.3 H Eosinophils % 1.7 Basophils % 0.5 Neutrophils # 9.9 H Lymphocytes # 2.4 Monocytes # 1.4 H Eosinophils # 0.2 Basophils # 0.1 Sodium 131 L Potassium 4.1 Chloride 106 Carbon Dioxide 16 L Anion Gap 13 BUN 69 H Creatinine 1.49 H Estimated GFR (MDRD) 48 Glucose 86 Calcium 8.7 Surgery Progress Note: A/P - Problem (1) Colon cancer metastasized to intra-abdominal lymph node Current Visit: No Code(s): C18.9 - MALIGNANT NEOPLASM OF COLON, UNSPECIFIED; C77.2 - SECONDARY AND UNSP MALIGNANT NEOPLASM OF INTRA-ABD NODES Status: Acute - Plan Plan: Readmission for nausea, vomitting, dehydration -Try regular diet -Na improved -creatinine improved -home tomorrow if doing well
[2019-07-14] MEDS: NIFEdipine XL 60 MG TAB PO SCH ×2 (07:58→21:20)
[2019-07-14] MEDS: Famotidine/PF 20 mg/2ml Vial SLOW IVP SCH ×2 (07:58→21:39)
[2019-07-14] MEDS: Famotidine 20 MG TAB PO SCH ×2 (07:58→21:11)
[2019-07-14] MEDS ORDERED: HumaLOG 300 UNITS/3 ML VIAL SC PRN (15:10)
[2019-07-14] MEDS: D5W-AA 4.25% with LYTES 1,000 ML BAG IV SCH (16:33)
[2019-07-14] MEDS: Enoxaparin Sodium 40 MG/0.4 ML SYRINGE SC SCH (21:11)
[2019-07-15] MEDS: D5W-AA 4.25% with LYTES 1,000 ML BAG IV SCH ×2 (02:54→13:33)
[2019-07-15 06:34] LABS: Anion Gap 12 mmol/L (10-20); BUN (Urea Nitrogen) 37 mg/dL (8.4-25.7); Calc. Creatinine Clearance 96 mL/min (70-130); Calcium 8.5 mg/dL (7.8-10.44); Carbon Dioxide 19 mmol/L (23-31); Chloride 104 mmol/L (98-107); Estimated GFR-MDRD 80; Glucose 110 mg/dL (80-115); Potassium 4.2 mmol/L (3.5-5.1); Sodium 131 mmol/L (136-145)
[2019-07-15] MEDS: Famotidine/PF 20 mg/2ml Vial SLOW IVP SCH ×2 (10:16→19:32)
[2019-07-15] MEDS: Famotidine 20 MG TAB PO SCH ×2 (10:16→19:46)
[2019-07-15] MEDS: NIFEdipine XL 60 MG TAB PO SCH ×2 (10:17→19:49)
--- NOTE | 2019-07-15 12:35 | PDOC.GSPN ---
Surgery Progress Note: Subj - Subjective Narrative: Doing well. tolerated regular food yesterday Surgery Progress Note: Obj - Vital signs Vital signs: Vital Signs - Most Recent Temp Pulse Resp BP Pulse Ox 98.3 F 71 20 139/76 99 07/15/19 11:58 07/15/19 11:58 07/15/19 11:58 07/15/19 11:58 07/15/19 11:58 - Physical Exam General: no distress Cardiovascular: regular rate and rhythm Respiratory: clear to auscultation Abdomen: soft, non tender, nondistended Surgery Progress Note: Results - Labs Result Diagrams: 07/14/19 05:35 07/15/19 05:37 Lab results: Laboratory Results - last 24 hr 07/15/19 05:37 Sodium 131 L Potassium 4.2 Chloride 104 Carbon Dioxide 19 L Anion Gap 12 BUN 37 H Creatinine 0.95 Estimated GFR (MDRD) 80 Glucose 110 Calcium 8.5 Surgery Progress Note: A/P - Problem (1) Colon cancer metastasized to intra-abdominal lymph node Current Visit: No Code(s): C18.9 - MALIGNANT NEOPLASM OF COLON, UNSPECIFIED; C77.2 - SECONDARY AND UNSP MALIGNANT NEOPLASM OF INTRA-ABD NODES Status: Acute - Plan Plan: Readmission for nausea, vomitting, dehydration -Try regular diet -Na improved -creatinine improved -home tomorrow if doing well
[2019-07-15] MEDS: Enoxaparin Sodium 40 MG/0.4 ML SYRINGE SC SCH (19:46)
[2019-07-16] MEDS: D5W-AA 4.25% with LYTES 1,000 ML BAG IV SCH (00:12)
[2019-07-16 06:30] LABS: Anion Gap 14 mmol/L (10-20); BUN (Urea Nitrogen) 25 mg/dL (8.4-25.7); Calc. Creatinine Clearance 1069 mL/min (70-130); Calcium 9.3 mg/dL (7.8-10.44); Carbon Dioxide 22 mmol/L (23-31); Chloride 102 mmol/L (98-107); Estimated GFR-MDRD Greater than 90; Glucose 119 mg/dL (80-115); Potassium 4.5 mmol/L (3.5-5.1); Sodium 133 mmol/L (136-145)
[2019-07-16] MEDS: NIFEdipine XL 60 MG TAB PO SCH (08:23)
[2019-07-16] MEDS: Famotidine/PF 20 mg/2ml Vial SLOW IVP SCH (08:23)
[2019-07-16] MEDS: Famotidine 20 MG TAB PO SCH (08:23)
[2019-07-16 11:10] VITALS: BP 124/71; TEMP 98.2
--- NOTE | 2019-07-16 13:25 | DIS ---
DATE OF ADMISSION: 07/13/2019 DATE OF DISCHARGE: 07/16/2019 ADMITTING DIAGNOSES: 1. Nausea, vomiting, diarrhea, status post recent colectomy. 2. Hyponatremia. 3. Acute renal insufficiency. 4. Severe dehydration. DISCHARGE DIAGNOSES: 1. Nausea, vomiting, diarrhea, status post recent colectomy. 2. Hyponatremia. 3. Acute renal insufficiency. 4. Severe dehydration. PROCEDURES: None. CONDITION ON DISCHARGE: Improved. STAFF: Yo Whiting MD HOSPITAL COURSE: The patient was admitted. He had been discharged after his colectomy. His colectomy was complicated by ATN causing creatinine up to 8, and it had dropped into the 2.6 range prior to discharge. He was severely dehydrated at home when he came to see me for his followup appointment. He was dizzy, anorexic, and obviously dehydrated. He was admitted for fluid resuscitation. He was found to have significantly low sodium, and his creatinine was up a little bit from discharge. Over the course of his hospitalization, he felt much better with IV fluid resuscitation. He was started on TPN. His sodium approached normal on the day of discharge. His creatinine went down to normal. He felt better. He is able to tolerate regular food. No nausea or vomiting. He is still having loose stools. C. diff was negative, and the diarrhea is improved slightly. He will be discharged home. He will follow up with me in 2 weeks. Job ID: [id number]
== END 2019-07-16 12:06 | disposition home or self-care (01) ==
LOC: ERS 14:40 → SURG A 16:45
PROVIDERS: ADMIT Surgery; ATTEND Surgery
DX: E86.0 Dehydration (principal); R19.7 Diarrhea, unspecified; E87.1 Hypo-osmolality and hyponatremia; N28.9 Disorder of kidney and ureter, unspecified; I25.10 Atherosclerotic heart disease of native coronary artery without angina pectoris; C18.4 Malignant neoplasm of transverse colon; C77.2 Secondary and unspecified malignant neoplasm of intra-abdominal lymph nodes; G89.29 Other chronic pain; I10 Essential (primary) hypertension; Z86.010 Personal history of colon polyps; Z87.891 Personal history of nicotine dependence; Z79.82 Long term (current) use of aspirin; Z79.899 Other long term (current) drug therapy; Z88.0 Allergy status to penicillin; Z90.49 Acquired absence of other specified parts of digestive tract
CPT/HCPCS: 74022; 80048 ×3; 80053; 82550; 82962 ×3; 83735; 85025 ×2; 87324; 87449; 96361 ×3; 96365; 96366 ×3; 96372 ×3; 96375; 96376 ×2; 99285; G0378 ×5; J1650 ×3; J2270 ×2; 36415; 36416; 96360; S0028

== ENCOUNTER 2019-07-25 11:40 | Inpatient (IN) | payer MEDICARE, OTHER ==
--- NOTE | 2019-07-25 12:05 | RAD ---
Chest AP view INDICATION: Passing out; chest pain COMPARISON: Acute abdominal series dated July 13, 2019 FINDINGS: Lungs: The lungs are clear Cardiac silhouette: The cardiomediastinal silhouette appears within normal limits. Pulmonary vasculature: Normal Pleural spaces: No pleural effusion or pneumothorax is demonstrated. Upper abdomen: No abnormality seen. Osseous structures: No acute osseous abnormality. Additional findings: Partial visualization of thoracolumbar spinal instrumentation is unchanged. The re is postprocedural change of the right shoulder. IMPRESSION: No acute cardiopulmonary abnormality.
[2019-07-25 12:29] LABS: #Basophils 0.1 thou/uL (0.0-0.2); #Eosinphils 0.1 thou/uL (0.0-0.7); #Lymphocytes 1.9 thou/uL (1.20-3.40); #Monocytes 0.7 thou/uL (0.11-0.59); #Neutrophils 10.4 thou/uL (1.40-6.50); %Basophils 0.6 % (0.0-1.0); %Lymphocytes 14.5 % (21.0-51.0); %Monocytes 5.6 % (0.0-10.0); %Neutrophils 78.3 % (42.0-75.0); Hemoglobin 16.1 g/dL (14.0-18.0); Mean Corpuscular HGB CONC 34.2 g/dL (32.0-36.0); Mean Corpuscular Hemoglobin 30.9 pg (27.0-31.0); Mean Corpuscular Volume 90.4 fL (78.0-98.0); Mean Platelet Volume 9.6 fL (7.4-10.4); Platelet Count 240 thou/uL (130-400); RBC Distribution Width 12.1 % (11.5-14.5); Red Blood Cell (RBC) Count 5.21 mill/uL (4.70-6.10); White Blood Cell (WBC) Count 13.3 thou/uL (4.8-10.8)
[2019-07-25 12:52] LABS: ALT (SGPT) 21 U/L (8-55); AST (SGOT) 8 U/L (5-34); Albumin 4.8 g/dL (3.4-4.8); Alkaline Phosphatase 85 U/L (40-110); Anion Gap 34 mmol/L (10-20); BUN (Urea Nitrogen) 119 mg/dL (8.4-25.7); Bilirubin, Total 1.1 mg/dL (0.2-1.2); Calc. Creatinine Clearance 0 mL/min (70-130); Calcium 10.1 mg/dL (7.8-10.44); Carbon Dioxide 13 mmol/L (23-31); Chloride 88 mmol/L (98-107); Estimated GFR-MDRD 4; Globulin 3.5 g/dL (2.4-3.5); Glucose 123 mg/dL (80-115); Potassium 5.5 mmol/L (3.5-5.1); Protein, Total 8.3 g/dL (5.8-8.1); Sodium 129 mmol/L (136-145)
[2019-07-25] MEDS ORDERED: Fentanyl 100 MCG/2 ML VIAL ONE (13:11)
[2019-07-25] MEDS ORDERED: Ondansetron PF 4 MG/2 ML Vial ONE (13:11)
[2019-07-25] MEDS ORDERED: Cefepime 2 GM VIAL ONE (13:25)
[2019-07-25] MEDS ORDERED: metroNIDAZOLE 500 MG/100 ML BAG ONE (13:27)
--- NOTE | 2019-07-25 13:54 | CT ---
CT Brain WO Con: 07/25/2019 1:43 PM CLINICAL HISTORY: History of passing out and fall with weakness. IMAGING TECHNIQUE: Multiple CT images were obtained of the brain without IV contrast. COMPARISON: None. FINDINGS: Brain: No acute infarct or hemorrhage is evident. No midline shift. Ventricles: Normal. No hydrocephalus. Skull: Intact. Visualized Paranasal sinuses: Clear. Mastoid air cells:Clear. Extracranial soft tissues:Normal. IMPRESSION: No acute intracranial abnormality.
--- NOTE | 2019-07-25 14:11 | CT ---
CT OF THE ABDOMEN AND PELVIS WITHOUT IV CONTRAST INDICATION: Emergency room examination; patient has been passing on the floor with diffuse weakness a nd shortness of breath COMPARISON: CT of the chest, abdomen and pelvis dated June 01, 2019 FINDINGS: The lack of IV contrast limits evaluation of the solid organs of the abdomen and pelvis. ABDOMEN: Lung bases: Bibasilar atelectasis Liver: Unopacified liver is unremarkable Gallbladder: Partially contracted Pancreas: Normal. Adrenal glands: Normal. Spleen: Normal. Kidneys and ureters: Normal. No hydronephrosis. Vasculature: There are mild vascular calcifications seen involving the visualized vasculature. Lymph nodes:Mildly prominent periportal lymph nodes are stable. Free fluid in abdomen:No free fluid is evident. PELVIS: Small and large bowel: There is been interval partial colectomy and colon enteric anastomosis in the left lower quadrant of the abdomen. There is slight prominence of numerous loops of small bowel as well as portions of the colon which may reflect an ileus. Appendix:Surgically absent Bladder: Partially decompressed Rectal and perirectal soft tissues:Normal. Reproductive structures: Mild prostate enlargement Free fluid in pelvis: No free fluid is evident. Lymphadenopathy pelvis: No lymphadenopathy is evident. Osseous structures: No acute osseous abnormality. No destructive osteolytic or osteoblastic lesion i s identified. There is scattered degenerative and osteoarthritic changes. Stable operative changes of the thoracolumbar spine. Stable posttraumatic change of the left iliac wing. Soft tissues:Normal. IMPRESSION: 1. Mild diffuse dilatation of the small and large bowel may reflect an ileus. 2. Interval partial colectomy and colorectal enteric anastomosis in left lower quadrant abdomen. 3. Stable mildly prominent periportal lymph nodes
[2019-07-25 15:28] LABS: Lactic Acid 2.4 mmol/L (0.5-2.2)
[2019-07-25 16:00] LABS: Bacteria/HPF 2+ HPF (None Seen); Bilirubin Negative (Negative); Blood, Urine 1+ (Negative); Clarity Turbid (Clear); Glucose, Urine (Dipstick) Normal (Negative); Leukocyte 75 Leu/uL (Negative); Nitrite Negative (Negative); Protein, Urine (Dipstick) 70 mg/dL (Neg-Trace); RBC/HPF 0-3 HPF (0-3); Urobilinogen Normal mg/dL (Less than 2)
[2019-07-25] MEDS ORDERED: Sodium Chloride 0.9% 1,000 ML IV SCH (16:21)
[2019-07-25] MEDS ORDERED: Sodium Bicarbonate 75 MEQ in Sodium Chloride 0.45% 1,000 ML IV SCH (17:00)
[2019-07-25 17:10] LABS: Creatinine, Urine 162.76 mg/dL (63-166)
--- NOTE | 2019-07-25 17:26 | PDOC.HHP ---
Hospitalist HPI - History of Present Illness nausea/vomiting/weakness History of Present Illness: This is a 63 year old male with past medical history of colon cancer s/p colectomy in May, hypertension who presents to the ER with nausea/vomiting/ diarrhea. The patient states his diarrhea started after his surgery and progressively got worst. He reports having brown diarrhea up to 6 times a day. He has no blood in his stools. No fevers, chills or abdominal pain. He has been feeling nauseous and does vomit occasionally. He has no travel history or sick contacts. He was in the hospital from 07/12 to 07/15 due to severe diarrhea from colectomy and did require TPN during that admission and IV fluids for acute renal failure. Since discharge he states that he has been unable to eat anything properly because it goes straight through his stools. He has been feeling extremely weak and two days ago he found himself on the floor and thinks he passed out. ED Course: Upon arrival to the ER, the patients' blood pressure was noted to be 60 systolic. He received 5L of fluids. Lactate improved from 2.8 to 2.4. Creatinine was up to 12. CT abdomen showed diffuse dilation of small and large bowel. Blood pressure eventually improved to 90 systolic. Patien states he was taking nifedipine and lisinopril at home due to BP of 180 during last hospitalization. Hospitalist ROS - Review of Systems Constitutional: denies: fever, chills Eyes: denies: vision change ENT: denies: ear pain, ear discharge, mouth pain Respiratory: denies: cough, dry, shortness of breath Cardiovascular: denies: chest pain, palpitations, orthopnea Gastrointestinal: denies: nausea, vomiting, abdominal pain Genitourinary: denies: dysuria, frequency, incontinence Musculoskeletal: denies: neck pain, shoulder pain, arm pain Skin: denies: rash, lesions, dee dee, bruising Neurological: denies: weakness, numbness, incoordination - Medication Medications: Active Medications Generic Name Dose Route Start Last Admin Trade Name Freq PRN Reason Stop Dose Admin Sodium Bicarbonate 75 meq/ 1,075 mls @ 150 mls/hr 07/25/19 17:00 07/25/19 17: 18 Sodium Chloride IV 1,075 mls INF DENA Administration Hospitalist History - Past Medical History Cardiac: reports: HTN - Past Surgical History Other Surgical History: Colon polyp removal 2005 Colon resection in May Back surgery Shoulder fusion appendectomy - Family History Other Family History: no kidney problems in family - Social History Smoking Status: Former smoker (quit in June 28) Alcohol: reports: Occassional Drugs: reports: none Living Situation: With Family - Exam General Appearance: NAD, awake alert Eye: PERRL, anicteric sclera ENT: normocephalic atraumatic, no oropharyngeal lesions Neck: supple, no JVD, no carotid bruit Heart: RRR, no murmur, no gallops, no rubs Respiratory: CTAB, no wheezes, no rales, no ronchi Gastrointestinal - other findings: abdomen mildly distended, hypoactive bowel sounds, RLQ and LLQ tenderness Extremities: no cyanosis, no clubbing, no edema Skin: normal turgor, no lesions, no rashes Neurological: cranial nerve grossly intact, normal sensation to touch, no focal deficits, no new deficit Musculoskeletal: normal tone, normal strength, no muscle wasting Psychiatric: normal affect, normal behavior, A&O x 3, oriented to time Hospitalist Results - Labs Result Diagrams: 07/25/19 12:10 07/25/19 12:10 Lab results: WBC 13.3 thou/uL (4.8-10.8) H 07/25/19 12:10 Hgb 16.1 g/dL (14.0-18.0) 07/25/19 12:10 Hct 47.1 % (42.0-52.0) 07/25/19 12:10 MCV 90.4 fL (78.0-98.0) 07/25/19 12:10 Plt Count 240 thou/uL (130-400) 07/25/19 12:10 Neutrophils % 78.3 % (42.0-75.0) H 07/25/19 12:10 Sodium 129 mmol/L (136-145) L 07/25/19 12:10 Potassium 5.5 mmol/L (3.5-5.1) H 07/25/19 12:10 Chloride 88 mmol/L (98-107) L 07/25/19 12:10 Carbon Dioxide 13 mmol/L (23-31) L 07/25/19 12:10 BUN 119 mg/dL (8.4-25.7) H 07/25/19 12:10 Creatinine 12.96 mg/dL (0.7-1.3) H 07/25/19 12:10 Glucose 123 mg/dL (80-115) H 07/25/19 12:10 Lactic Acid 2.4 mmol/L (0.5-2.2) H 07/25/19 14:55 Calcium 10.1 mg/dL (7.8-10.44) 07/25/19 12:10 Total Bilirubin 1.1 mg/dL (0.2-1.2) 07/25/19 12:10 AST 8 U/L (5-34) 07/25/19 12:10 ALT 21 U/L (8-55) 07/25/19 12:10 Alkaline Phosphatase 85 U/L (40-110) 07/25/19 12:10 Troponin I 0.019 ng/mL (< 0.028) 07/25/19 12:10 Serum Total Protein 8.3 g/dL (5.8-8.1) H 07/25/19 12:10 Albumin 4.8 g/dL (3.4-4.8) 07/25/19 12:10 Urine Ketones Negative mg/dL (Negative) 07/25/19 15:38 Urine Blood 1+ (Negative) A 07/25/19 15:38 Urine Nitrite Negative (Negative) 07/25/19 15:38 Ur Leukocyte Esterase 75 Brody/uL (Negative) A 07/25/19 15:38 Urine RBC 0-3 HPF (0-3) 07/25/19 15:38 Urine WBC 11-20 HPF (0-3) A 07/25/19 15:38 Ur Squamous Epith Cells 7-10 HPF (0-3) A 07/25/19 15:38 Urine Bacteria 2+ HPF (None Seen) A 07/25/19 15:38 Hospitalist H&P A/P - Plan Plan: CT abdomen: mild diffuse dilation of small and large bowel which may reflect an ileus. Prominent periportal lymph nodes Chest xray: normal CT brain: negative This is a 63 year old male patient with past medical history of hypertension who presented to the ER with nausea, vomiting, diarrhea, found to be in acute renal failure #Acute renal failure secondary to dehydration #Hyperkalemia secondary to dehydration #Hyponatremia #Lactic acidosis - creatinine is up to 12, baseline is normal. He does have history of ATN in the past. Continue IV fliuds with sodium bicarbonate - repeat lactate tomorrow - sodium 129, will continue to trend #Nausea/vomiting/diarrhea #Ileus - will check stool cultures. C diff negative - send stool for ova and parasites - continue cipro and flagyl empirically Colon cancer s/p recent colectomy - will inform Dr. Whiting about patient being here - patient has not seen oncologist yet due to being readmitted DVT prophylaxis: ambulation Code status: full code
[2019-07-25] MEDS ORDERED: HYDROcodone/Acetaminophen 5/325 mg Tablet PO PRN (17:27)
[2019-07-25] MEDS ORDERED: Acetaminophen 325 MG TAB PO PRN (17:27)
[2019-07-25] MEDS ORDERED: Ondansetron PF 4 MG/2 ML Vial IVP PRN (17:34)
[2019-07-25 19:38] LABS: Potassium 5.6 mmol/L (3.5-5.1)
[2019-07-25 20:43] LABS: Potassium 4.9 mmol/L (3.5-5.1)
[2019-07-25] MEDS: Sodium Bicarbonate 150 MEQ in Dextrose 5% in Water 1,000 ML IV SCH (20:57)
[2019-07-25] MEDS: metroNIDAZOLE 500 MG in Premix Bag 1 BAG IVPB SCH (22:43)
--- NOTE | 2019-07-26 00:46 | CON ---
DATE OF CONSULTATION: REASON FOR CONSULTATION: Hyperkalemia. HISTORY: This is a very well known 63-year-old gentleman presented to the hospital with . The patient was noted to have a creatinine of more than 12, potassium of 5.5, and a bicarb of 11. The patient had nausea, vomiting, and diarrhea. He was having multiple episodes of diarrhea after colectomy. The patient denies any headache, numbness, tingling, . PAST MEDICAL HISTORY: Hypertension, acute kidney injury, colon resection, back surgery, shoulder fusion, appendectomy. FAMILY HISTORY: Negative for ESRD. ALLERGIES: REVIEWED. HOME MEDICATIONS: List reviewed. HOSPITAL MEDICATIONS: List reviewed. ALLERGIES: REVIEWED. REVIEW OF SYSTEMS: A 15-point review of systems was performed, negative except what was noted above. HEENT: Eyes intact, no diplopia. Ears: No hearing loss or earache. Nose: No discharge or bleeding. Chest: No cough or phlegm. Abdomen: No nausea or vomiting. Genitourinary: No hematuria. No Briggs catheter. Musculoskeletal: No low back pain. No joint swelling or pain. Neurological: No syncope. No seizures. Skin: No complaints of rash or itching. Psychiatric: No depression. Constitutional: No weight loss or loss of appetite. PHYSICAL EXAMINATION: General: The patient is awake and alert. Vital Signs: Afebrile, pulse 75, breathing at 16, blood pressure 136/61. HEENT: Head normocephalic and atraumatic. Eyes intact, no ulcers. Nose intact, no ulcers. Ears intact, no ulcers. Neck: Supple. No JVD. Chest: Symmetrical and clear. Cardiovascular: Shows S1 and S2, no rub, no murmur. Gastrointestinal: Abdomen is soft, bowel sounds positive. Extremities: Show no edema or ulcers. Skin: Shows no rash or petechiae. Musculoskeletal: Shows no joint swelling or stiffness. Genitourinary: Shows no Briggs or CVA tenderness. Neurologic: Motor intact. Cranial nerves intact. LABORATORY DATA: Labs reviewed. IMPRESSION: 1. Acute kidney injury with chronic kidney disease, most likely due to decreased effective arterial blood volume. Continue hydration. 2. Hyperkalemia. Give bicarbonate therapy. 3. Metabolic acidosis. Give bicarbonate therapy. Medication based on GFR. I would recommend changing the normal saline to D5 water with 3 amps of sodium bicarbonate. No urgent indication for dialysis. We will order renal imaging. Job ID: [id number]
[2019-07-26 04:47] LABS: Anion Gap 21 mmol/L (10-20); BUN (Urea Nitrogen) 98 mg/dL (8.4-25.7); Calc. Creatinine Clearance 12 mL/min (70-130); Carbon Dioxide 17 mmol/L (23-31); Chloride 99 mmol/L (98-107); Estimated GFR-MDRD 8; Glucose 106 mg/dL (80-115); Sodium 133 mmol/L (136-145)
[2019-07-26 05:03] LABS: #Basophils 0.1 thou/uL (0.0-0.2); #Eosinphils 0.2 thou/uL (0.0-0.7); #Lymphocytes 1.8 thou/uL (1.20-3.40); #Monocytes 1.1 thou/uL (0.11-0.59); #Neutrophils 7.5 thou/uL (1.40-6.50); %Basophils 0.5 % (0.0-1.0); %Eosinophils 1.9 % (0.0-10.0); %Lymphocytes 16.9 % (21.0-51.0); %Monocytes 10.6 % (0.0-10.0); %Neutrophils 70.1 % (42.0-75.0); Hemoglobin 12.7 g/dL (14.0-18.0); Mean Corpuscular HGB CONC 33.9 g/dL (32.0-36.0); Mean Corpuscular Volume 91.5 fL (78.0-98.0); Mean Platelet Volume 9.8 fL (7.4-10.4); Platelet Count 186 thou/uL (130-400); RBC Distribution Width 12.1 % (11.5-14.5); Red Blood Cell (RBC) Count 4.09 mill/uL (4.70-6.10); White Blood Cell (WBC) Count 10.7 thou/uL (4.8-10.8)
[2019-07-26] MEDS: metroNIDAZOLE 500 MG in Premix Bag 1 BAG IVPB SCH ×3 (05:13→21:00)
[2019-07-26] MEDS: Sodium Bicarbonate 150 MEQ in Dextrose 5% in Water 1,000 ML IV SCH ×2 (05:18→14:49)
[2019-07-26] MEDS ORDERED: Citrucel 500 MG TAB PO PRN (09:43)
--- NOTE | 2019-07-26 10:54 | RAD ---
KUB: DATE: 07/26/2019. PROVIDED CLINICAL HISTORY: Ileus. FINDINGS: Visualized lung bases appear clear. The abdominal bowel gas pattern is nonspecific. The supine natu re of this study is not sensitive for detection of the pneumoperitoneum. No radiographically apparen t urinary tract calculi. Spinal instrumentation. IMPRESSION: Nonspecific bowel gas pattern. POS: EDGARDO
--- NOTE | 2019-07-26 11:29 | PRG ---
DATE OF SERVICE: 07/26/2019 SUBJECTIVE: Patient was seen and examined at bedside and overnight events noted. Patient denies any shortness of breath or chest pain or palpitation. No history of nausea or vomiting or diarrhea or fever or chills or cramps. OBJECTIVE: GENERAL: This is a well-built male, in no apparent distress. VITAL SIGNS: Temperature 97.5. Heart rate 77. Respiratory rate 23. Blood pressure 119/67. HEENT: Atraumatic, normocephalic. Oral mucosa is moist NECK: Supple. CARDIOVASCULAR: S1, S2 heard. Rate and rhythm regular. RESPIRATORY: Clear to auscultation. GASTROINTESTINAL: Abdomen is soft. MUSCULOSKELETAL: No tenderness. No edema. DERMATOLOGIC: No skin rash. NEUROLOGIC: Alert and awake and oriented X3. No focal neurologic deficits. Moving all the extremities. PSYCHIATRIC: Mood and affect normal. LABORATORY DATA: Potassium 4.0, BUN is 98, creatinine is 7.2. ASSESSMENT AND PLAN: 1. Acute kidney injury on chronic kidney disease, stage 3 with significant improvement in renal function after hydration. Continue hydration. Plan discussed with Dr. Mine Block, and plan is to change IV fluids to NS from D5W with bicarb at around 5 p.m. today. 2. Hyponatremia, better. 3. Hyperkalemia, better. 4. Acidosis, better on bicarb drip now. 5. Lactic acidosis. 6. Anemia. 7. History of hypertension. Labs, much better. We will continue to monitor. Avoid nephrotoxins and renally dose the medications. Medication list reviewed. Cautious use of antibiotics. Currently on Cipro and Flagyl. We will follow. Job ID: [id number]
[2019-07-26] MEDS ORDERED: Diphenoxylate HCl/Atropine Tablet PO SCH (13:15)
[2019-07-26 13:36] VITALS: BMI 23.6
--- NOTE | 2019-07-26 17:51 | PDOC.HOSPP ---
- Subjective Encounter Date: 07/26/19 Encounter Time: 16:00 Subjective: The patient continues to have diarrhea. he has mild abdominal pain. No nausea or vomiting. He states his diet was advanced today Xray shows nonspecific bowel gas pattern. He is passing gas - Objective Vital Signs & Weight: Vital Signs (12 hours) Temp Pulse Resp BP Pulse Ox 07/26/19 16:10 98.3 F 78 18 122/77 95 07/26/19 12:00 98.8 F 07/26/19 08:00 97.5 F L 100 Weight Admit Weight 179 lb Weight 179 lb 0.246 oz Most Recent Monitor Data Heart Rate from ECG 68 NIBP 94/57 NIBP BP-Mean 69 Respiration from ECG 16 SpO2 100 I&O: 07/25/19 07/26/19 07/27/19 06:59 06:59 06:59 Intake Total 2477 1225 Output Total 2200 2050 Balance 277 -825 Result Diagrams: 07/26/19 03:31 07/26/19 03:31 Hospitalist ROS - Review of Systems Constitutional: denies: fever, chills - Medication Medications: Active Medications Generic Name Dose Route Start Last Admin Trade Name Freq PRN Reason Stop Dose Admin Metronidazole 500 mg/ Device 100 mls @ 100 mls/hr 07/25/19 22:00 07/26/19 13: 47 IVPB 100 mls Q8HR DENA Administration Ciprofloxacin/Dextrose 400 mg/ 200 mls @ 200 mls/hr 07/25/19 18:00 07/26/19 17:24 Device IVPB 200 mls 0600,1800 DENA Administration Sodium Bicarbonate 150 meq/ 1,150 mls @ 160.465 mls/hr 07/25/19 20:00 14:49 Dextrose/Water IV 1,150 mls INF DENA Administration - Exam General Appearance: NAD, awake alert Eye: PERRL, anicteric sclera ENT: normocephalic atraumatic, no oropharyngeal lesions Neck: supple, symmetric, no JVD, no thyromegaly Heart: RRR, no murmur, no gallops, no rubs Respiratory: CTAB, no wheezes, no rales, no ronchi Gastrointestinal: soft Gastrointestinal - other findings: abdomen distended, slightly tender to palpation in lower quadrants Extremities: no cyanosis, no clubbing, no edema Hosp A/P - Plan This is 63 year old male with colon cancer s/p resection 06/28 who is presenting with severe diarrhea/nausea/vomiting #Diarrhea - likely secondary to malabsorption from colectomy vs infectious etiology - had WBC of 12 on admission, elevated fecal lactoferrin. Negative ova and parasite, C diff and stool culture - started on citrocel 500 mg daily - will add metamucil daily - Dr. Talavera ordered lomotil tid - continue cipro/flagyl for now #Hypernatremia #Hyperkalemia #MAC - creatinine improved to 7. Hyperkalemia resolved. Sodium up to 133 - continue IV fluids, nephrology following, on D5W with bicarbonate. Will repeat BMP to assess if bicarbonate can be stopped #Hypotension #Lactic acidosis - hypotension resolved. Lactate still elevated this am, will repeat Anemia - Hb 12, likely dilutional - will monitor Code status: full code
[2019-07-26] MEDS: Metamucil PACK PO SCH (18:10)
[2019-07-26 18:49] LABS: Anion Gap 17 mmol/L (10-20); BUN (Urea Nitrogen) 74 mg/dL (8.4-25.7); Calc. Creatinine Clearance 23 mL/min (70-130); Carbon Dioxide 24 mmol/L (23-31); Chloride 95 mmol/L (98-107); Estimated GFR-MDRD 17; Glucose 132 mg/dL (80-115); Potassium 3.5 mmol/L (3.5-5.1); Sodium 132 mmol/L (136-145)
--- NOTE | 2019-07-26 19:07 | CON ---
DATE OF CONSULTATION: 07/26/2019 HISTORY OF PRESENT ILLNESS: Mr. Singh who is a patient of Dr. Whiting, who recently underwent a partial colon resection. Apparently, he had a right colon resection and had a transverse colon resection, but has his ileum connected to his descending colon per my discussion with Dr. Whiting. Apparently, he has been having frequent loose stools and subsequently has been admitted. PAST MEDICAL HISTORY: Remarkable for: 1. Hypertension. 2. History of colon polypectomy in 2004. 3. History of a transverse colon resection in May. 4. History of back surgery. 5. History of shoulder surgery. 6. History of appendectomy. SOCIAL HISTORY: He smoked up until this year. Occasionally drinks. Not a drug user. REVIEW OF SYSTEMS: A 10-point review of systems is remarkable mainly for vomiting and diarrhea, nothing else. PHYSICAL EXAMINATION: VITAL SIGNS: Heart rate is in the 80s, blood pressure 103/57, respiratory rates in the teens. HEAD AND NECK: Unremarkable. LUNGS: Clear. HEART: Regular rhythm. ABDOMEN: Nontender. EXTREMITIES: Without asymmetry. LABORATORY DATA: White count 10.7, hemoglobin 12.7, and platelets 186. Sodium 133, potassium 4, chloride 99, bicarb 17, BUN 98, and creatinine 7.26. Creatinine was 12.96 yesterday. IMPRESSION: Severe intravascular volume depletion, associated with diarrhea. Antimotility agents probably should be started, assuming that his workup for an infectious cause of his diarrhea is negative. His C difficile antigen and toxin are negative. Once his COVID serologies negative, he could transfer out of the critical care unit in my opinion. This is a 70 min consult with 50% of time spent on unit with coordination of care. Job ID: [id number] MTDD
[2019-07-26] MEDS: Diphenoxylate HCl/Atropine Tablet PO SCH (21:01)
[2019-07-27] MEDS: metroNIDAZOLE 500 MG in Premix Bag 1 BAG IVPB SCH ×2 (04:59→14:05)
[2019-07-27 05:11] LABS: Hemoglobin 11.8 g/dL (14.0-18.0); Mean Corpuscular HGB CONC 34.1 g/dL (32.0-36.0); Mean Corpuscular Volume 90.8 fL (78.0-98.0); Mean Platelet Volume 9.4 fL (7.4-10.4); Platelet Count 165 thou/uL (130-400); RBC Distribution Width 11.9 % (11.5-14.5); Red Blood Cell (RBC) Count 3.81 mill/uL (4.70-6.10); White Blood Cell (WBC) Count 8.7 thou/uL (4.8-10.8)
[2019-07-27 05:21] LABS: Anion Gap 15 mmol/L (10-20); BUN (Urea Nitrogen) 56 mg/dL (8.4-25.7); Calc. Creatinine Clearance 37 mL/min (70-130); Carbon Dioxide 29 mmol/L (23-31); Chloride 95 mmol/L (98-107); Estimated GFR-MDRD 28; Glucose 116 mg/dL (80-115); Potassium 3.2 mmol/L (3.5-5.1); Sodium 136 mmol/L (136-145)
--- NOTE | 2019-07-27 07:30 | PRG ---
DATE OF SERVICE: 07/27/2019 SUBJECTIVE: Héctor Singh reports dramatic improvement in the frequency of bowel movements since Lomotil has been added. Microbiology has been reviewed. No cultures from the are positive. It would not be to stop his antibiotics. His C. diff workup and infectious diarrhea workup were negative. He is stable post transfer out of the Critical Care Unit. He has no complaints. OBJECTIVE: LUNGS: Clear. VITAL SIGNS: He is afebrile, heart rate is 70, respiratory rate is 16, oximetry is 95% on room air, blood pressure is 103/63. IMPRESSION: Intravascular volume depletion secondary to diarrhea. His creatinine is down to 2.3 from starting point of 12.9. We will sign off. Job ID: [id number]
[2019-07-27] MEDS: Diphenoxylate HCl/Atropine Tablet PO SCH ×3 (07:44→21:13)
[2019-07-27] MEDS ORDERED: Potassium Chloride 20 MEQ TAB PO SCH ×2 (07:45→08:45)
[2019-07-27] MEDS: Metamucil PACK PO SCH (07:45)
[2019-07-27] MEDS ORDERED: Sodium Chloride 0.45% 1,000 ML IV SCH (07:45)
[2019-07-27] MEDS: Sodium Chloride 0.45% 1,000 ML IV SCH (09:13)
--- NOTE | 2019-07-27 09:15 | PRG ---
DATE OF SERVICE: 07/27/2019 SUBJECTIVE: Patient was seen and examined at bedside and overnight events noted. Patient denies any shortness of breath or chest pain or palpitation. No history of nausea or vomiting or diarrhea or fever or chills or cramps. OBJECTIVE: GENERAL: This is a well-built male, in no apparent distress. VITAL SIGNS: Temperature . Heart rate 60. Respiratory rate 18. Blood pressure 116/74. HEENT: Atraumatic, normocephalic. Oral mucosa is moist NECK: Supple. CARDIOVASCULAR: S1, S2 heard. Rate and rhythm regular. RESPIRATORY: Clear to auscultation. GASTROINTESTINAL: Abdomen is soft. MUSCULOSKELETAL: No tenderness. No edema. DERMATOLOGIC: No skin rash. NEUROLOGIC: Alert and awake and oriented X3. No focal neurologic deficits. Moving all the extremities. PSYCHIATRIC: Mood and affect normal. LABORATORY DATA: Potassium 3.2, BUN is 56, and creatinine is 2.3. ASSESSMENT AND PLAN: 1. Acute kidney injury, much better. 2. Hypokalemia, replace. 3. Edema, controlled. 4. Acidosis, better. 5. Renal function is much better. Monitor electrolytes. Avoid nephrotoxins. Job ID: [id number]
--- NOTE | 2019-07-27 11:14 | PRG ---
DATE OF SERVICE: 07/27/2019 SUBJECTIVE: Mr. Singh has no complaints today. His pain is resolved. He has no nausea, no vomiting. The Lomotil is already helping with his amount of stools. He is tolerating a regular diet without difficulty. OBJECTIVE: VITAL SIGNS: He is afebrile. Vital signs are stable. GENERAL: His wound is healing well. LABORATORY DATA: His white blood cell count is 8, hemoglobin 11. Creatinine is down to 2.34. His COVID serology was negative. ASSESSMENT: Severe dehydration, status post partial colectomy causing acute renal failure, improved. PLAN: I think he needs to stay. I think we need to monitor his response to the Lomotil for another 24 to 48 hours. Job ID: [id number]
--- NOTE | 2019-07-27 16:21 | PDOC.HOSPP ---
- Subjective Encounter Date: 07/27/19 Encounter Time: 13:40 Subjective: F/u: MAC, diarrhea The patient states he is doing much better. He is still having diarrhea, improved to 4 loose stools. Abd pain significantly improved. He states psyllium gives him bad reflux so he doesn't like it. He is taking the lomotil and the citrucel - Objective Vital Signs & Weight: Vital Signs (12 hours) Temp Pulse Resp BP Pulse Ox 07/27/19 12:17 98.0 F 60 18 107/64 98 07/27/19 07:52 97.8 F 60 18 116/74 98 Weight Admit Weight 179 lb Weight 179 lb 0.246 oz Most Recent Monitor Data Heart Rate from ECG 68 NIBP 94/57 NIBP BP-Mean 69 Respiration from ECG 16 SpO2 100 I&O: 07/26/19 07/27/19 07/28/19 06:59 06:59 06:59 Intake Total 2477 1985 Output Total 0 2049 Balance 277 -65 Result Diagrams: 07/27/19 04:55 07/27/19 04:55 Hospitalist ROS - Review of Systems Constitutional: denies: fever, chills - Medication Medications: Active Medications Generic Name Dose Route Start Last Admin Trade Name Freq PRN Reason Stop Dose Admin Diphenoxylate HCl/Atropine 1 tab 07/26/19 21:00 07/27/19 14:05 Lomotil PO 1 tab TID DENA Administration Metronidazole 500 mg/ Device 100 mls @ 100 mls/hr 07/25/19 22:00 07/27/19 14: 05 IVPB 100 mls Q8HR DENA Administration Ciprofloxacin/Dextrose 400 mg/ 200 mls @ 200 mls/hr 07/25/19 18:00 07/27/19 04:59 Device IVPB 200 mls 0600,1800 DENA Administration Sodium Chloride 1,000 mls @ 50 mls/hr 07/27/19 08:36 07/27/19 09:13 1/2 Normal Saline IV Not Given .Q20H DENA Psyllium Hydrophilic Mucilloid 1 pk 07/26/19 09:00 07/27/19 07:45 Metamucil PO Not Given DAILY DENA - Exam General Appearance: NAD, awake alert Eye: PERRL, anicteric sclera ENT: normocephalic atraumatic, no oropharyngeal lesions Neck: no JVD Heart: RRR, no murmur, no gallops, no rubs, normal peripheral pulses Respiratory: CTAB, no wheezes, no rales, no ronchi Gastrointestinal: soft, non-tender, non-distended Gastrointestinal - other findings: diminished bowel sounds Extremities: no cyanosis, no clubbing, no edema Skin: normal turgor, no lesions, no rashes Neurological: cranial nerve grossly intact, normal sensation to touch, no focal deficits, no new deficit Hosp A/P - Plan This is 63 year old male with colon cancer s/p resection 06/28 who is presenting with severe diarrhea/nausea/vomiting #Diarrhea - likely secondary to malabsorption from colectomy vs infectious etiology - had WBC of 12 on admission, elevated fecal lactoferrin. Negative ova and parasite, C diff and stool culture - started on citrocel 500 mg daily, lomotil - will d/c metamucil since it causes GERD - switch IV antibiotics to oral cipro and flagyl MAC - creatinine improved to 2.3. Continue IV fluids, switched to 1/2 NS #Hypernatremia - resolved Hypokalemia - potassium 3.2, s/p 80 meq of potassium this morning #Hypotension #Lactic acidosis - resolved Anemia - Hb 11.8, downtrending, will monitor Code status: full code
[2019-07-27] MEDS: metroNIDAZOLE 500 MG TAB PO SCH (21:13)
[2019-07-27] MEDS: Ciprofloxacin 500 MG TAB PO SCH (21:13)
[2019-07-28] MEDS: Sodium Chloride 0.45% 1,000 ML IV SCH ×3 (01:50→19:51)
[2019-07-28 05:42] LABS: Mean Corpuscular Volume 96.8 fL (78.0-98.0); Mean Platelet Volume 9.1 fL (7.4-10.4); Platelet Count 166 thou/uL (130-400); RBC Distribution Width 12.3 % (11.5-14.5); Red Blood Cell (RBC) Count 3.87 mill/uL (4.70-6.10); White Blood Cell (WBC) Count 8.7 thou/uL (4.8-10.8)
[2019-07-28 06:00] LABS: Anion Gap 12 mmol/L (10-20); BUN (Urea Nitrogen) 27 mg/dL (8.4-25.7); Calc. Creatinine Clearance 65 mL/min (70-130); Calcium 8.1 mg/dL (7.8-10.44); Carbon Dioxide 29 mmol/L (23-31); Chloride 101 mmol/L (98-107); Estimated GFR-MDRD 54; Glucose 106 mg/dL (80-115); Potassium 3.9 mmol/L (3.5-5.1); Sodium 138 mmol/L (136-145)
[2019-07-28] MEDS: Ciprofloxacin 500 MG TAB PO SCH (06:30)
[2019-07-28] MEDS: Metamucil PACK PO SCH ×2 (09:56→09:58)
[2019-07-28] MEDS: metroNIDAZOLE 500 MG TAB PO SCH (09:56)
[2019-07-28] MEDS: Diphenoxylate HCl/Atropine Tablet PO SCH ×3 (09:56→19:51)
--- NOTE | 2019-07-28 10:30 | PDOC.HOSPP ---
- Subjective Encounter Date: 07/28/19 Encounter Time: 10:28 Subjective: The patient had four loose stool yesterday. He had lomotil tid. Antibiotics switched to oral, however he stated it made him nauseous when he had them without food and started to dry heave some. He also stated having two almost near accidents this morning and thinks the antibiotics are making it worst. Patient wants to stay in the hospital until his kidney function is back to normal. He is uncomfortable going home yet until his diarrhea is slightly better. - Objective Vital Signs & Weight: Vital Signs (12 hours) Temp Pulse Resp BP Pulse Ox 07/28/19 07:06 98.3 F 61 16 132/68 96 07/28/19 03:29 98.3 F 71 16 124/71 96 07/27/19 23:35 98.3 F 61 16 152/77 H 96 Weight Admit Weight 179 lb Weight 179 lb 0.246 oz Most Recent Monitor Data Heart Rate from ECG 68 NIBP 94/57 NIBP BP-Mean 69 Respiration from ECG 16 SpO2 100 I&O: 07/27/19 07/28/19 07/29/19 06:59 06:59 06:59 Intake Total 1984 2480 Output Total 2049 Balance -65 2480 Result Diagrams: 07/28/19 05:29 07/28/19 05:29 Hospitalist ROS - Medication Medications: Active Medications Generic Name Dose Route Start Last Admin Trade Name Freq PRN Reason Stop Dose Admin Diphenoxylate HCl/Atropine 1 tab 07/26/19 21:00 07/28/19 09:56 Lomotil PO 1 tab TID DENA Administration Ondansetron HCl 4 mg 07/25/19 17:34 07/28/19 03:20 Zofran IVP 4 mg Q6H PRN Administration Nausea/Vomiting - Exam General Appearance: NAD, awake alert Eye: PERRL, anicteric sclera ENT: normocephalic atraumatic, no oropharyngeal lesions Neck: no JVD Heart: RRR, no murmur, no gallops, no rubs Respiratory: CTAB, no wheezes, no rales, no ronchi Gastrointestinal: soft, non-distended, normal bowel sounds Gastrointestinal - other findings: mild RLQ tenderness Extremities: no cyanosis, no clubbing, no edema Skin: normal turgor, no lesions, no rashes Neurological: cranial nerve grossly intact, normal sensation to touch, no focal deficits, no new deficit Musculoskeletal: normal tone, normal strength, no muscle wasting Psychiatric: normal affect, normal behavior, A&O x 3, oriented to person Hosp A/P - Plan This is 63 year old male with colon cancer s/p resection 06/28 who is presenting with severe diarrhea/nausea/vomiting #Diarrhea - likely secondary to malabsorption from colectomy vs infectious etiology - had WBC of 12 on admission, elevated fecal lactoferrin. Negative ova and parasite, C diff and stool culture - started on citrocel 500 mg daily, lomotil tid - will discontinue antibiotics to see if diarrhea improves MAC - creatinine improved to 1.3. Increase fluids to 75/hour #Hypernatremia - resolved Hypokalemia - resolved #Hypotension #Lactic acidosis - resolved Anemia - Hb 12. stable Code status: full code
--- NOTE | 2019-07-28 11:29 | PRG ---
DATE OF SERVICE: 07/28/2019 SUBJECTIVE: Patient was seen and examined at bedside and overnight events noted. Patient denies any shortness of breath or chest pain or palpitation. No history of nausea or vomiting or diarrhea or fever or chills or cramps. OBJECTIVE: GENERAL: This is a well-built male, in no apparent distress. VITAL SIGNS: Temperature 98.3. Heart rate 67. Respiratory rate 16. Blood pressure 132/68. HEENT: Atraumatic, normocephalic. Oral mucosa is moist NECK: Supple. CARDIOVASCULAR: S1, S2 heard. Rate and rhythm regular. RESPIRATORY: Clear to auscultation. GASTROINTESTINAL: Abdomen is soft. MUSCULOSKELETAL: No tenderness. No edema. DERMATOLOGIC: No skin rash. NEUROLOGIC: Alert and awake and oriented X3. No focal neurologic deficits. Moving all the extremities. PSYCHIATRIC: Mood and affect normal. LABORATORY DATA: Potassium is 3.9, BUN is 27, and creatinine is 1.3. ASSESSMENT AND PLAN: 1. Acute kidney injury, better. 2. Hypokalemia, replace. 3. Edema. 4. Acidosis, stable. Labs, much better. Job ID: [id number]
--- NOTE | 2019-07-28 12:12 | PDOC.GSPN ---
Surgery Progress Note: Subj - Subjective Patient reports: no new complaints (Had 4 bowel movements yesterday) Surgery Progress Note: Obj - Vital signs Vital signs: Vital Signs - Most Recent Temp Pulse Resp BP Pulse Ox 98 F 79 18 111/66 98 07/28/19 11:01 07/28/19 11:01 07/28/19 11:01 07/28/19 11:01 07/28/19 11:01 - Physical Exam General: no distress Respiratory: clear to auscultation Abdomen: soft, non tender, nondistended Wound: healing well Surgery Progress Note: Results - Labs Result Diagrams: 07/28/19 05:29 07/28/19 05:29 Lab results: Laboratory Results - last 24 hr 07/28/19 07/28/19 05:29 05:29 WBC 8.7 RBC 3.87 L Hgb 12.0 L Hct 37.4 L MCV 96.8 MCH 31.0 MCHC 32.0 RDW 12.3 Plt Count 166 MPV 9.1 Sodium 138 Potassium 3.9 Chloride 101 Carbon Dioxide 29 Anion Gap 12 BUN 27 H Creatinine 1.33 H Estimated GFR (MDRD) 54 Glucose 106 Calcium 8.1 Surgery Progress Note: A/P - Problem (1) Colon cancer metastasized to intra-abdominal lymph node Current Visit: No Code(s): C18.9 - MALIGNANT NEOPLASM OF COLON, UNSPECIFIED; C77.2 - SECONDARY AND UNSP MALIGNANT NEOPLASM OF INTRA-ABD NODES Status: Acute - Plan Plan: Diarrhea improving -continue lomotil -kidney function normalizing
[2019-07-29 05:20] LABS: Hemoglobin 11.6 g/dL (14.0-18.0); Mean Corpuscular HGB CONC 32.9 g/dL (32.0-36.0); Mean Corpuscular Hemoglobin 31.2 pg (27.0-31.0); Mean Corpuscular Volume 94.8 fL (78.0-98.0); Mean Platelet Volume 9.5 fL (7.4-10.4); Platelet Count 158 thou/uL (130-400); Red Blood Cell (RBC) Count 3.73 mill/uL (4.70-6.10); White Blood Cell (WBC) Count 10.1 thou/uL (4.8-10.8)
[2019-07-29 05:37] LABS: Anion Gap 10 mmol/L (10-20); BUN (Urea Nitrogen) 13 mg/dL (8.4-25.7); Calc. Creatinine Clearance 87 mL/min (70-130); Calcium 8.1 mg/dL (7.8-10.44); Carbon Dioxide 27 mmol/L (23-31); Chloride 101 mmol/L (98-107); Estimated GFR-MDRD 75; Glucose 101 mg/dL (80-115); Potassium 3.9 mmol/L (3.5-5.1); Sodium 134 mmol/L (136-145)
[2019-07-29] MEDS: Diphenoxylate HCl/Atropine Tablet PO SCH (08:47)
[2019-07-29] MEDS ORDERED: Citrucel 500 MG TAB PO SCH (09:00)
--- NOTE | 2019-07-29 09:48 | PDOC.GSPN ---
Surgery Progress Note: Subj - Subjective Patient reports: no new complaints Surgery Progress Note: Obj - Vital signs Vital signs: Vital Signs - Most Recent Temp Pulse Resp BP Pulse Ox 98 F 62 14 135/76 98 07/29/19 08:00 07/29/19 08:00 07/29/19 08:00 07/29/19 08:00 07/29/19 08:00 - Physical Exam General: no distress Abdomen: soft, non tender, nondistended Wound: healing well Surgery Progress Note: Results - Labs Result Diagrams: 07/29/19 04:48 07/29/19 04:48 Lab results: Laboratory Results - last 24 hr 07/29/19 07/29/19 04:48 04:48 WBC 10.1 RBC 3.73 L Hgb 11.6 L Hct 35.4 L MCV 94.8 MCH 31.2 H MCHC 32.9 RDW 12.0 Plt Count 158 MPV 9.5 Sodium 134 L Potassium 3.9 Chloride 101 Carbon Dioxide 27 Anion Gap 10 BUN 13 Creatinine 1.00 Estimated GFR (MDRD) 75 Glucose 101 Calcium 8.1 Surgery Progress Note: A/P - Problem (1) Colon cancer metastasized to intra-abdominal lymph node Current Visit: No Code(s): C18.9 - MALIGNANT NEOPLASM OF COLON, UNSPECIFIED; C77.2 - SECONDARY AND UNSP MALIGNANT NEOPLASM OF INTRA-ABD NODES Status: Acute - Plan Plan: Creatinine normal Bowel movements slowing down -DC home, I told him to do one lomotil three times a day, he can do two in am if bm's more frequent -F/U 2 weeks -I sent lomotil to [facility]
--- NOTE | 2019-07-29 12:00 | DIS ---
DATE OF ADMISSION: 07/25/2019 DATE OF DISCHARGE: 07/29/2019 DISCHARGE DIAGNOSES: 1. Severe diarrhea secondary to malabsorption from colectomy 2. Acute kidney injury 3. Hypotension 4. Lactic acidosis 5. Hyponatremia CONSULTATIONS: 1. Dr. Yo Whiting with General Surgery. 2. Dr. Rica Valle, with Nephrology. 3. Dr. Henry Lubin with Critical Care. PROCEDURES: None BRIEF HISTORY OF PRESENT ILLNESS: This is a 63-year-old male with past medical history of colon cancer, status post colectomy in May and hypertension, who presented to the emergency room with nausea, vomiting, and diarrhea. The patient was having diarrhea up to 6 times a day. He also reported some abdominal pain and some mild distention. Upon arrival to the ER, the patient's blood pressure was 60 systolic. He had a lactic acid of 2.8 and received 5 L of fluids in the ER. His creatinine was 12. His CT abdomen showed diffuse dilation of the small and large bowel. He was initially admitted to the [facility] due to his hypotension and admitted for further workup. HOSPITAL COURSE: Severe diarrhea likely secondary to malabsorption from colectomy: The patient did have stool cultures checked, which were negative for C. diff, ova and parasites. He did have coronavirus testing, which was normal. He was started on Cipro and Flagyl empirically. He had a repeat abdominal x-ray on the , which showed nonspecific bowel gas pattern. His abdominal distention improved and his antibiotics were eventually discontinued since this was causing his diarrhea to worsen. On the day of discharge, he reported 4 stools, but they were more formed. He did respond to Lomotil in the hospital and Citrucel. He will be discharged on Lomotil t.i.d. and Citrucel daily p.r.n. He can titrate his Lomotil up to 2 pills in the morning, if bowel movements are more frequent. He should follow up with Dr. Yo Whiting in 2 to 3 weeks. Acute kidney injury/hypotension/lactic acidosis/hyponatremia: The patient did present with a creatinine of 12, blood pressure in the 60s. Sodium of 129. He was given IV fluids and his creatinine went from 12 to 1. He was seen by Nephrology in consultation. His UA was turbid; however, his urine culture was normal. His blood cultures were negative x2. COVID testing was negative as mentioned above, and C. diff was negative. He will be discharged and follow up with his PCP in a week. DISCHARGE PHYSICAL EXAMINATION: VITAL SIGNS: Temperature 98.4, heart rate 60, respiratory rate 14, O2 saturation 98% on room air, blood pressure 135/76. GENERAL: The patient is alert, awake, and oriented x3. CVS: Regular rate and rhythm with no murmurs, rubs, or gallops. LUNGS: Clear to auscultation bilaterally. ABDOMEN: Positive bowel sounds, slight mild tenderness in the right and left lower quadrant. No significant distention. EXTREMITIES: No edema. PERTINENT LABORATORY DATA: CBC 07/28: Hemoglobin 11.6, hematocrit 35.4. BMP 07/28: Sodium is 134, creatinine is 1.0. UA 07/24: Shows turbid urine with 11 to 20 white blood cells, 7 to 10 epithelial cells, 2+ bacteria, 7 to 10 hyaline casts, 21 to 50 granular casts. Urine creatinine: 162. Urine sodium: 67. IMAGING STUDIES: Chest x-ray 07/24: No acute disease. CT abdomen and pelvis, 07/24: Mild diffuse dilation of the small and large bowels may reflect an ileus. Interval partial colectomy and colorectal enteric anastomosis in the left lower quadrant. Stable mildly prominent periportal lymph nodes. CT brain, 07/24: No acute disease. Abdominal x-ray, 07/25: Nonspecific bowel gas pattern. DISCHARGE CONDITION: Stable. ACTIVITY: As tolerated. DIET: Regular diet. DISCHARGE INSTRUCTIONS: The patient should follow up with his PCP in a week and with regard to needing to resume his blood pressure medications. He should also followup with Dr. Yo Whiting in 2 to 3 weeks. DISCHARGE MEDICATIONS: New prescriptions: 1. Citrucel 500 mg p.o. daily. 2. Lomotil 1 tablet p.o. t.i.d. Discontinued medications: 1. Nifedipine 60 mg b.i.d. 2. Lisinopril 40 mg p.o. daily. Job ID: [id number] [facility]
[2019-07-29 12:03] VITALS: BP 126/69; TEMP 98.5
--- NOTE | 2019-07-29 13:50 | PRG ---
DATE OF SERVICE: 07/29/2019 SUBJECTIVE: Patient was seen and examined at bedside and overnight events noted. Patient denies any shortness of breath or chest pain or palpitation. No history of nausea or vomiting or diarrhea or fever or chills or cramps. OBJECTIVE: GENERAL: This is a well-built male, in no apparent distress. VITAL SIGNS: Temperature 98.0. Pulse 67. Respiratory rate 14. Blood pressure 135/76. HEENT: Atraumatic, normocephalic. Oral mucosa is moist. NECK: Supple. CARDIOVASCULAR: S1, S2 heard. Rate and rhythm regular. RESPIRATORY: Clear to auscultation. GASTROINTESTINAL: Abdomen is soft. MUSCULOSKELETAL: No tenderness. No edema. DERMATOLOGIC: No skin rash. NEUROLOGIC: Alert and awake and oriented x3. No focal neurologic deficits. Moving all the extremities. PSYCHIATRIC: Mood and affect normal. LABORATORY DATA: Potassium 3.9, BUN is 30, and creatinine is 1.0. ASSESSMENT AND PLAN: 1. Acute kidney injury, better. 2. Hypokalemia, replaced. 3. Edema. 4. Acidosis, stable. Labs are much better. Follow up with Dr. Anglin in 1 to 2 weeks. Job ID: [id number]
--- NOTE | 2019-07-30 08:38 | PQF ---
MOY HERRERA, MINE [id number] [facility] A- [id number] CLINICAL DOCUMENTATION CLARIFICATION FORM: POST DISCHARGE Addendum to original discharge summary date: ____ Late entry note date: __ DATE:07/30/2019 ATTN:Mine Stein Please exercise your independent, professional judgment in responding to the clarification form. Clinical indicators are provided on the bottom of this form for your review In your clinical opinion based on clinical findings below, can you please identify the etiology of Hypotension if due to: Please check appropriate box(s): [X ] Dehydration [ X ] Acute Kidney Injury [ X ] Malabsorption following colectomy [ ] Other diagnosis [ ] Unable to determine In addition, please specify: Present on Admission (POA): [ X ] Yes [ ] No [ ] Unable to determine For continuity of documentation, please document condition throughout progress notes and discharge summary. Thank You. CLINICAL INDICATORS - SIGNS / SYMPTOMS / LABS Laboratory 07/24 Sodium 129, Potassium 5.5, GFR 4, Creatinine 12.96, BUN 119 Vital signs 07/24 BP 69/51, Pulse 105, Resp 23, Temp 97.7 H&P p1 07/24 Dr Wagner Pt presents to ER with nausea/vomiting/diarrhea H&P p1 07/24 Dr Wagner He was in hospital from 07/12-07/15 due to severe diarrhea from colectomy H&P p1 07/24 Dr Wagner Upon arrival to ER, the pt blood pressure was noted to be 60 systolic H&P p4 07/24 Dr wagner Acute renal failure secondary to dehydration Consult p1 07/25 Dr Lubin Severe intervascular volume depletion, associated with diarrhea Consult p2 07/26 Dr Anglin Acute kidney injury with chronic kidney disease, most likely due to decreased effective arterial blood volume Discharge summary p1 07/28 Severe diarrhea secondary to Malabsorption from colectomy RISK FACTORS H&P p1 07/24 63 year-old Male H&P p1 07/24 hx of Colon cancer s/o Colectomy H&P p2 07/24 HTN H&P p2 07/24 Former Smoker H&P p4 07/24 MAC H&P p4 07/24 Dehydration H&P p4 07/24 Hyponatremia H&P p4 07/24 Lactic acidosis H&P p5 07/24 Ileus Consult p2 07/26 - Hyperkalemia Consult p2 07/26 - CKD TREATMENTS: JUN 01 IVF bolus 1L JUN 01 IV Sodium Bicarbonate 75 meq JUN 01 IV Flagyl 500mg JUN 01 Lomotil 1 tab oral Abdomen X-day 07/25 Nephrology consult - Aubrey Bolton (This form is maintained as a part of the permanent medical record) 2014 [employer]. All Rights Reserved [email or web address]
--- NOTE | 2019-07-30 08:40 | PQF ---
MOY HERRERA, MINE [id number] [facility] A- [id number] CLINICAL DOCUMENTATION CLARIFICATION FORM: POST DISCHARGE Addendum to original discharge summary date: ____ Late entry note date: __ DATE:07/30/2019 ATTN:Mine Stein Please exercise your independent, professional judgment in responding to the clarification form. Clinical indicators are provided on the bottom of this form for your review Please check appropriate box(s): [ X ] Hypovolemic Shock [ ] Shock Unspecified [ ] Other diagnosis [ ] Unable to determine In addition, please specify: Present on Admission (POA): [ X] Yes [ ] No [ ] Unable to determine For continuity of documentation, please document condition throughout progress notes and discharge summary. Thank You. CLINICAL INDICATORS - SIGNS / SYMPTOMS / LABS Laboratory 07/24 Sodium 129, Potassium 5.5, GFR 4, Creatinine 12.96, BUN 119 Vital signs 07/24 BP 69/51, Pulse 105, Resp 23, Temp 97.7 H&P p1 07/24 Dr Wagner Pt presents to ER with nausea/vomiting/diarrhea H&P p1 07/24 Dr Wagner He was in hospital from 07/12-07/15 due to severe diarrhea from colectomy H&P p1 07/24 Dr Wagner Upon arrival to ER, the pt blood pressure was noted to be 60 systolic H&P p4 07/24 Dr wagner Acute renal failure secondary to dehydration Consult 07/25 Dr Lubin Severe intravascular volume depletion, associated with diarrhea Consult 07/26 Dr Anglin Acute ki RISK FACTORS H&P p1 07/24 63 year-old Male H&P p1 07/24 hx of Colon cancer s/o Colectomy H&P p2 07/24 HTN H&P p2 07/24 Former Smoker H&P p4 07/24 MAC H&P p4 07/24 Dehydration H&P p4 07/24 Hyponatremia H&P p4 07/24 Lactic acidosis Consult p2 07/26 - Hyperkalemia Consult p2 07/26 - CKD Discharge summary p1 07/28 -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 All Rights Reserved [email or web address]
== END 2019-07-29 14:32 | disposition home or self-care (01) | DRG 682 ==
LOC: ERS 11:40 → CCU 16:22 → SURG A 07-26 16:16
PROVIDERS: ADMIT Internal Medicine; ATTEND Internal Medicine
PROC: 8E0ZXY6 Isolation (ICD-10-PCS; principal; 2019-07-25)
DX: N17.9 Acute kidney failure, unspecified (principal); R57.1 Hypovolemic shock; K91.2 Postsurgical malabsorption, not elsewhere classified; E87.2 Acidosis; E87.1 Hypo-osmolality and hyponatremia; K56.7 Ileus, unspecified; Z20.828 Contact with and (suspected) exposure to other viral communicable diseases; Y83.6 Removal of other organ (partial) (total) as the cause of abnormal reaction of the patient, or of later complication, without mention of misadventure at the time of the procedure; E87.5 Hyperkalemia; N18.3 Chronic kidney disease, stage 3 (moderate); I12.9 Hypertensive chronic kidney disease with stage 1 through stage 4 chronic kidney disease, or unspecified chronic kidney disease; D63.1 Anemia in chronic kidney disease; E86.9 Volume depletion, unspecified; Z87.891 Personal history of nicotine dependence; Z85.038 Personal history of other malignant neoplasm of large intestine; Z98.1 Arthrodesis status; Z90.49 Acquired absence of other specified parts of digestive tract; Z86.010 Personal history of colon polyps; Z79.899 Other long term (current) drug therapy; Z79.82 Long term (current) use of aspirin; Z85.89 Personal history of malignant neoplasm of other organs and systems; Z88.0 Allergy status to penicillin
CPT/HCPCS: 36415; 70450; 71045; 74018; 74176; 80048; 80053; 81003; 81015; 82570; 83605; 83630; 84156; 84300; 84484; 84540; 85025; 85027; 87040; 87045; 87046; 87086; 87324; 87328; 87329; 87427; 87449; 87635; 93005; 96361; 96365; 96375; J0692; J0744; J2405; J3010; J7070; U0003

== ENCOUNTER 2019-08-13 06:33 | Outpatient (CLI) | payer MEDICARE, OTHER ==
[2019-08-14 16:29] LABS: SARS-CoV-2 MS2 Positive; SARS-CoV-2 N Gene Negative; SARS-CoV-2 S Gene Negative; SARS-CoV-2 orf1ab Negative
== END 2019-08-13 06:34 | disposition home or self-care (01) ==
LOC: LABBT 06:33
PROVIDERS: ATTEND Surgery
DX: Z01.812 Encounter for preprocedural laboratory examination (principal); Z11.59 Encounter for screening for other viral diseases; C18.9 Malignant neoplasm of colon, unspecified
CPT/HCPCS: 87635; U0003

== ENCOUNTER 2020-09-18 12:53 | Outpatient (CLI) | payer MEDICARE | END 2020-09-18 12:54 | disposition home or self-care (01) | LOC: BICCT 12:53 | PROVIDERS: ATTEND Internal Medicine Hematology & Oncology | DX: Z12.2 Encounter for screening for malignant neoplasm of respiratory organs (principal); F17.210 Nicotine dependence, cigarettes, uncomplicated; R91.1 Solitary pulmonary nodule | CPT/HCPCS: 71271 ==

== ENCOUNTER 2020-11-07 10:33 | Outpatient (CLI) | payer MEDICARE | END 2020-11-07 10:34 | disposition home or self-care (01) | LOC: BICRAD 10:33 | PROVIDERS: ATTEND Internal Medicine Critical Care Medicine | DX: R06.00 Dyspnea, unspecified (principal); R91.1 Solitary pulmonary nodule | CPT/HCPCS: 71046 ==

== ENCOUNTER 2021-05-10 08:18 | Outpatient (CLI) | payer MEDICARE | END 2021-05-10 08:19 | disposition home or self-care (01) | LOC: BICCT 08:18 | PROVIDERS: ATTEND Internal Medicine Critical Care Medicine | DX: R91.1 Solitary pulmonary nodule (principal) | CPT/HCPCS: 71250 ==

== ENCOUNTER 2022-04-22 11:18 | Outpatient (CLI) | payer OTHER | END 2022-04-22 11:19 | disposition home or self-care (01) | LOC: BICCT 11:18 | PROVIDERS: ATTEND Internal Medicine Critical Care Medicine | DX: R91.1 Solitary pulmonary nodule (principal) | CPT/HCPCS: 71250 ==

== ENCOUNTER 2023-05-08 13:21 | Outpatient (CLI) | payer OTHER | END 2023-05-08 13:22 | disposition home or self-care (01) | LOC: BICCT 13:21 | PROVIDERS: ATTEND Internal Medicine Critical Care Medicine | DX: R91.1 Solitary pulmonary nodule (principal) | CPT/HCPCS: 71250 ==

== ENCOUNTER 2023-09-08 14:00 | Outpatient (CLI) | payer OTHER ==
[2023-09-08 15:33] LABS: Hemoglobin 18.3 g/dL (13.5-17.5)
[2023-09-08 17:08] LABS: Anion Gap 14 mmol/L (10-20); BUN (Urea Nitrogen) 20 mg/dL (8.4-25.7); Calc. Creatinine Clearance 0 mL/min (70-130); Calcium 9.7 mg/dL (7.8-10.44); Carbon Dioxide 22 mmol/L (23-31); Chloride 106 mmol/L (98-107); Estimated GFR 88; Glucose 142 mg/dL (80-115); Potassium 4.1 mmol/L (3.5-5.1); Sodium 138 mmol/L (136-145)
== END 2023-09-08 14:01 | disposition home or self-care (01) ==
LOC: LABBT 14:00
PROVIDERS: ATTEND Otolaryngology Plastic Surgery within the Head & Neck
DX: Z01.818 Encounter for other preprocedural examination (principal); J38.3 Other diseases of vocal cords
CPT/HCPCS: 80048; 85014; 85018; 93005; 93010

== ENCOUNTER 2023-09-11 11:27 | Day surgery (SDC) | payer OTHER ==
[2023-09-08 14:41] VITALS: BMI 27.1
[2023-09-11] MEDS ORDERED: fentaNYL PF 100 MCG/2 ML SYRINGE ONE ×2 (12:33→13:21)
[2023-09-11] MEDS ORDERED: PROPOFOL 20 ML ONE ×2 (12:33→13:22)
[2023-09-11] MEDS ORDERED: Lidocaine 1% PF 5 ML VIAL ONE (12:51)
[2023-09-11] MEDS ORDERED: Lidocaine 2% PF 5 ML VIAL ONE (13:22)
[2023-09-11] MEDS ORDERED: SUCCINYLCHOLINE/SOD CL,ISO/PF 200 MG/10 ML SYRINGE FS ONE ×2 (13:39→14:24)
[2023-09-11] MEDS ORDERED: PHENYLEPHRINE-NS 100 MCG/ML 10 ML SYRINGE ONE (14:14)
[2023-09-11] MEDS ORDERED: EPINEPHrine 1 MG/ML VIAL ONE (14:56)
== END 2023-09-11 16:33 | disposition home or self-care (01) ==
LOC: SDC 11:27
PROVIDERS: ATTEND Specialist
PROC: 0CBT8ZX Excision of Right Vocal Cord, Via Natural or Artificial Opening Endoscopic, Diagnostic (ICD-10-PCS; principal; 2023-09-11)
DX: C32.0 Malignant neoplasm of glottis (principal); J38.2 Nodules of vocal cords; Z88.0 Allergy status to penicillin
CPT/HCPCS: 31536; J0171; J2001; J2704; 88305; 88342; 88365